=== PATIENT | male | born 1940 | race Caucasian/White ===

== ENCOUNTER 2019-07-26 10:39 | Inpatient (IN) ==
[2019-07-26] MEDS ORDERED: LACTATED RINGERS 1,000 ML IV ONE (10:49)
--- NOTE | 2019-07-26 11:08 | Emergency Department Note ---
GI Bleed HPI - General Chief complaint: Rectal Bleed Stated complaint: rectal bleed x2 this am Time Seen by Provider: 07/26/19 10:48 Source: patient Mode of arrival: ambulatory Limitations: no limitations - History of Present Illness HPI Narrative: 78-year-old gentleman presents to ED with history of bleeding from his rectum with a total of 2 bowel movements this morning up. He denies any syncope, but he did feel little bit lightheaded him. He denies nausea, vomiting or abdominal pain, denies abdominal bloating, but does state that he had loose stools about 2 or 3 bowel movements per day for the last week. He is on blood thinners for his atrial fibrillation, status post colonoscopy 5 years ago with removal of a few benign polyps. Previous abdominal surgeries include nephrectomy on the left side. It. He is also status post appendectomy and prostatectomy from a suprapubic procedure. MD complaint: gross hematochezia Severity: moderate Improves with: none Worsens with: none Context: anticoagulant use Associated symptoms: Reports: denies other symptoms, easy bruising, shortness of breath, weakness. Denies: syncope - Related Data Home Medications Medication Instructions Recorded Confirmed dorzolamide-timolol (PF) 2 %-0.5 % 1 drp OPHTHALMIC BID 05/20/15 07/23/19 eye drops in a dropperette latanoprost 0.005 % eye drops 1 drp OPHTHALMIC QDAY 05/20/15 07/23/19 [facility] MVI Tatum Aiden Gold 1 tab PO QDAY 11/24/16 07/23/19 apixaban 2.5 mg tablet 2.5 mg PO BID #180 tab 12/18/18 07/26/19 budesonide 3 mg 3 mg PO .QOD each 07/23/19 07/26/19 capsule,delayed,extended release Previous Rx's Medication Instructions Recorded furosemide 20 mg tablet 20 mg PO BID #60 tab 03/04/19 sodium bicarbonate 325 mg tablet 325 mg PO BID #60 tab 07/23/19 Allergies Allergy/AdvReac Type Severity Reaction Status Date / Time lidocaine AdvReac Mild Nausea Verified 07/26/19 10:45 Review of Systems All systems ED: reviewed and negative except as stated. Constitutional: Denies: fever, chills ENT ED: Denies: throat pain Cardiovascular: Denies: palpitations Respiratory: Denies: shortness of breath Gastrointestinal: Reports: diarrhea. Denies: abdominal pain, nausea, vomiting Genitourinary: Reports: frequency. Denies: dysuria Past Medical History - Past Medical History Medical history: Reports: atrial fibrillation, COPD Surgical history ED: Reports: appendectomy, prostatectomy Family history: Reports: non-contributory - Social History smoking status: Current every day smoker Alcohol use: Reports: Rarely Drug use: Reports: none Physical Exam Limitations: no limitations General appearance: alert, in no apparent distress, other (in general, very frail, weak-appearing 78-year-old male) Head: atraumatic, normocephalic Eye: Present: normal appearance, PERRL, EOMI. Absent: scleral icterus, conjunctival injection ENT: Present: mucous membranes dry, TM's normal bilaterally, normal external ear exam, dental caries Neck: Present: normal inspection, full ROM Chest: Present: normal inspection, symmetric chest wall rise Respiratory: Present: decreased breath sounds. Absent: wheezes Cardiovascular: Present: irregular rhythm, systolic murmur Abdominal: Present: soft, normal bowel sounds. Absent: distention, tenderness Rectal: Present: normal rectal tone, heme (+) stool, bloody stool. Absent: mass, prostate enlargement : Present: normal inspection, normal testicular lie. Absent: testicular tenderness, scrotal swelling Extremities: Present: normal inspection, full ROM, cyanosis. Absent: tenderness, normal capillary refill, pedal edema, joint swelling, calf tenderness Back: Absent: CVA tenderness (R), CVA tenderness (L), vertebral tenderness Neurological: Present: alert, oriented X3, CN II-XII intact. Absent: motor sensory deficit Psychiatric: Present: normal affect Skin: Present: warm, dry, normal color Course - Reevaluation(s) Reevaluation #1: Patient had one further bloody bowel movement out. While in the ED. His second hemoglobin came back 10.4, first one was 11.3, thus, he has dropped almost 1 entire unit, of course, some of this may be IV fluid hydration. His abdominal exam is benign. He is not vomiting, I believe this is a lower GI bleed and he is on blood thinners with his INR being elevated. I discussed observation with Dr. Villatoro who will be happy to consult and perform endoscopy if necessary. Vital Signs Temperature 97.0 F 07/26/19 10:40 Pulse Rate 84 07/26/19 10:40 Respiratory Rate 17 07/26/19 10:40 Blood Pressure 127/54 07/26/19 10:40 Pulse Oximetry (%) 95 07/26/19 10:40 Temperature 97.0 F 07/26/19 10:40 Pulse Rate 67 07/26/19 13:46 Respiratory Rate 17 07/26/19 16:01 Blood Pressure 162/84 07/26/19 16:01 Pulse Oximetry (%) 84 L 07/26/19 13:46 GI Bleed - MDM Narrative Medical decision making narrative: Impression his lower GI bleed - Lab Data Lab results reviewed: Yes I reviewed the patient's lab results. Result diagrams: 07/26/19 14:58 07/26/19 11:15 Lab Results 07/26/19 07/26/19 07/26/19 Range/Units 11:15 11:15 11:15 WBC 5.2 (4.5-11.0) K/mcL RBC 3.38 L (4.50-5.90) M/mcL Hgb 11.3 L (13.5-16.5) g/dL Hct 34.3 L (41.0-55.0) % MCV 101.5 H (80.0-100.0) fL MCH 33.6 (26.0-34.0) pg MCHC 33.1 (31.0-36.0) g/dL RDW 14.8 H (11.5-14.5) % Plt Count 183 (140-440) K/mcL MPV 9.7 (7.4-10.4) fL Gran % 66.3 (38.0-78.0) % Lymph % (Auto) 22.8 (15.5-49.0) % [place] % (Auto) 8.8 (1.0-12.0) % Eos % (Auto) 1.5 (0.0-7.0) % Baso % (Auto) 0.6 (0.0-2.0) % Gran # 3.5 (1.8-8.0) K/mcL Lymph # (Auto) 1.2 L (1.5-4.8) K/mcL [place] # (Auto) 0.5 (0.1-0.9) K/mcL Eos # (Auto) 0.1 (0.0-0.7) K/mcL Baso # (Auto) 0 (0.0-0.3) K/mcL PT 14.6 H (11.9-14.5) sec INR 1.1 (0.9-1.1) Sodium 135 (133-145) mmol/L Potassium 4.2 (3.3-5.1) mmol/L Chloride 105 (96-108) mmol/L Carbon Dioxide 21 L (22-30) mmol/L Anion Gap 9.0 (8-16) BUN 28 H (8-23) mg/dl Creatinine 2.3 H (0.7-1.2) mg/dl GFR Calculation 26 Glucose 100 (70-105) mg/dL Calcium 10.1 (8.6-10.4) mg/dl Total Bilirubin 0.4 (0.0-1.0) mg/dL AST 16 (0-37) U/l ALT 13 (0-40) U/l Alkaline Phosphatase 80 (39-117) U/L Total Protein 6.7 (5.9-8.4) gm/dL Albumin 3.8 (3.2-5.2) gm/dL Globulin 2.9 (2.2-3.7) gm/dL Albumin/Globulin Ratio 1.3 (1.0-2.3) 12 Range/Units 14:58 WBC 5.4 (4.5-11.0) K/mcL RBC 3.16 L (4.50-5.90) M/mcL Hgb 10.4 L (13.5-16.5) g/dL Hct 31.9 L (41.0-55.0) % MCV 100.9 H (80.0-100.0) fL MCH 33.0 (26.0-34.0) pg MCHC 32.7 (31.0-36.0) g/dL RDW 14.8 H (11.5-14.5) % Plt Count 157 (140-440) K/mcL MPV 9.9 (7.4-10.4) fL Gran % 61.4 (38.0-78.0) % Lymph % (Auto) 25.7 (15.5-49.0) % [place] % (Auto) 9.9 (1.0-12.0) % Eos % (Auto) 1.8 (0.0-7.0) % Baso % (Auto) 1.2 (0.0-2.0) % Gran # 3.3 (1.8-8.0) K/mcL Lymph # (Auto) 1.4 L (1.5-4.8) K/mcL [place] # (Auto) 0.5 (0.1-0.9) K/mcL Eos # (Auto) 0.1 (0.0-0.7) K/mcL Baso # (Auto) 0.1 (0.0-0.3) K/mcL PT (11.9-14.5) sec INR (0.9-1.1) Sodium (133-145) mmol/L Potassium (3.3-5.1) mmol/L Chloride (96-108) mmol/L Carbon Dioxide (22-30) mmol/L Anion Gap (8-16) BUN (8-23) mg/dl Creatinine (0.7-1.2) mg/dl GFR Calculation Glucose (70-105) mg/dL Calcium (8.6-10.4) mg/dl Total Bilirubin (0.0-1.0) mg/dL AST (0-37) U/l ALT (0-40) U/l Alkaline Phosphatase (39-117) U/L Total Protein (5.9-8.4) gm/dL Albumin (3.2-5.2) gm/dL Globulin (2.2-3.7) gm/dL Albumin/Globulin Ratio (1.0-2.3) Disposition Pt seen by [employer]ER/PA only: No Clinical Impression: Lower gastrointestinal hemorrhage, Long-term (current) use of anticoagulants Disposition: Xfer As Outpt/Obs ([facility]) Condition: Fair Referrals: Luiz Centeno PA-C [Primary Care Provider] -
[2019-07-26] MEDS ORDERED: 0.9 % SODIUM CHLORIDE 250 ML IV SCH ×2 (11:15→18:01)
[2019-07-26 11:51] LABS: Basophils # (Auto) 0 K/mcL (0.0-0.3); Basophils % (Auto) 0.6 % (0.0-2.0); Eosinophils # (Auto) 0.1 K/mcL (0.0-0.7); Eosinophils % (Auto) 1.5 % (0.0-7.0); Granulocytes % (Auto) 66.3 % (38.0-78.0); Hematocrit 34.3 % (41.0-55.0); Hemoglobin 11.3 g/dL (13.5-16.5); Lymphocytes # (Auto) 1.2 K/mcL (1.5-4.8); Lymphocytes % (Auto) 22.8 % (15.5-49.0); Mean Cell Volume 101.5 fL (80.0-100.0); Mean Corpuscular HGB Conc 33.1 g/dL (31.0-36.0); Mean Platelet Volume 9.7 fL (7.4-10.4); Monocytes # (Auto) 0.5 K/mcL (0.1-0.9); Monocytes % (Auto) 8.8 % (1.0-12.0); Platelet Count 183 K/mcL (140-440); RBC 3.38 M/mcL (4.50-5.90); Red Cell Distribution Width 14.8 % (11.5-14.5); WBC 5.2 K/mcL (4.5-11.0)
[2019-07-26 12:01] LABS: INR 1.1 (0.9-1.1); Prothrombin Time 14.6 sec (11.9-14.5)
[2019-07-26 12:06] LABS: ALT/SGPT 13 U/l (0-40); AST/SGOT 16 U/l (0-37); Albumin 3.8 gm/dL (3.2-5.2); Albumin/Globulin Ratio 1.3 (1.0-2.3); Alkaline Phosphatase 80 U/L (39-117); Bilirubin,Total 0.4 mg/dL (0.0-1.0); Blood Urea Nitrogen 28 mg/dl (8-23); Calcium 10.1 mg/dl (8.6-10.4); Carbon Dioxide 21 mmol/L (22-30); Chloride 105 mmol/L (96-108); Globulin 2.9 gm/dL (2.2-3.7); Glomerular Filtration Rate 26; Glucose 100 mg/dL (70-105)
[2019-07-26 15:54] LABS: Basophils # (Auto) 0.1 K/mcL (0.0-0.3); Basophils % (Auto) 1.2 % (0.0-2.0); Eosinophils # (Auto) 0.1 K/mcL (0.0-0.7); Eosinophils % (Auto) 1.8 % (0.0-7.0); Granulocytes % (Auto) 61.4 % (38.0-78.0); Hematocrit 31.9 % (41.0-55.0); Hemoglobin 10.4 g/dL (13.5-16.5); Lymphocytes # (Auto) 1.4 K/mcL (1.5-4.8); Lymphocytes % (Auto) 25.7 % (15.5-49.0); Mean Cell Volume 100.9 fL (80.0-100.0); Mean Corpuscular HGB Conc 32.7 g/dL (31.0-36.0); Mean Platelet Volume 9.9 fL (7.4-10.4); Monocytes # (Auto) 0.5 K/mcL (0.1-0.9); Monocytes % (Auto) 9.9 % (1.0-12.0); Platelet Count 157 K/mcL (140-440); RBC 3.16 M/mcL (4.50-5.90); Red Cell Distribution Width 14.8 % (11.5-14.5); WBC 5.4 K/mcL (4.5-11.0)
[2019-07-26] MEDS ORDERED: MAGNESIUM SULFATE 2 GM/50 ML BAG IV PRN (18:01)
[2019-07-26] MEDS ORDERED: ACETAMINOPHEN 325 MG TABLET PO PRN (18:01)
[2019-07-26] MEDS ORDERED: IPRATROPIUM/ALBUTEROL 3 ML AMPUL.NEB NEB PRN (18:01)
[2019-07-26] MEDS ORDERED: ACETAMINOPHEN 650 MG/65 ML BOTTLE IV PRN (18:01)
[2019-07-26] MEDS ORDERED: POLYETHYLENE GLYCOL 3350 17 GM PACKET PO PRN (18:01)
[2019-07-26] MEDS ORDERED: ONDANSETRON 4 MG ODT TABLET SL PRN (18:01)
[2019-07-26] MEDS ORDERED: POTASSIUM CHLORIDE 20 MEQ PACKET PO PRN (18:01)
[2019-07-26] MEDS ORDERED: BISACODYL 10 MG SUPP.RECT PR PRN (18:01)
[2019-07-26] MEDS ORDERED: ONDANSETRON 4 MG/2 ML VIAL IV PRN (18:01)
--- NOTE | 2019-07-26 18:47 | Internal Med History&Physical ---
Medical - H&P: [facility] Patient information: Note initiated : 07/26/19 at 6:44 pm Service Date, if different from initiated Date: [] Patient: Valerio Ohara 78 y/o M admitted on 07/26/19 for rectal bleed x2 this am. Chief Complaint: [] Chief complaint: Bloody stool History of present illness: Mr. Ohara is a 78 year old M with a history of atrial fibrillation on anticoagulation presents with bloody bowel that started this morning. Patient on his baseline state of health until he noticed blood smeared stool in the morning he subsequently had 2 more bloody bowels which were generally in consi stency without pain. He denied noticing change in stool caliber or weight loss. He then presents to the ER with initial work-up revealed hemoglobin of 10.4. Surgery was consulted and requested hospitalist service to admit patient for evaluation and monitoring. Patient endorses to a similar episode of GI bleed 6 years ago wherein he underwent colonoscopy and bleeder cauterization. Ever since he has not had hospitalization and has been following up with cardiology Dr. Weston for atrial fibrillation and nephrology for chronic kidney disease. At the time of evaluation patient is alert and oriented. He denies lightheadedness dizziness, chest palpitation, chest pain, abdominal cramping or vision changes. He further denies recent NSAID use, alcoholism. He is to his Clarice and is fairly functional at baseline. 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) Hypertensive renal disease (Chronic) Vitamin D deficiency (Chronic) 08/21/12 Tobacco use (Chronic) Venous thrombosis and embolism (Resolved) Renal sclerosis (Chronic) Renal insufficiency (Chronic) 08/07/12 Rectal bleeding (Resolved) Prostate cancer (Resolved) Obstructive uropathy (Resolved) Metabolic acidosis (Suspected) Lymphocytic colitis (Chronic) advised to try reducing budesonide to every other day as suggested by GI Long-term (current) use of anticoagulants (Chronic) Kidney stones (Chronic) Hypertensive heart disease, benign, with chronic kidney disease stage 1-4 (Chronic) Hypertension, essential (Chronic) Secondary hyperparathyroidism of renal origin (Chronic) Hyperlipidemia (Chronic) 08/21/2012 Internal hemorrhoids (Resolved) Glaucoma (Chronic) Fatigue (Chronic) 12/06/12 Deep vein thrombosis (Resolved) Colonic polyp (Resolved) Chronic kidney disease, stage IV (severe) (Chronic) Atrial fibrillation (Chronic) Anemia in CKD (chronic kidney disease) (Chronic) Hb above threshold for SOFIA Will monitor Acidosis (Resolved) Abdominal aortic aneurysm (Chronic) Acute rhinosinusitis (Resolved) Surgical History Hx of tonsillectomy (Chronic) History of prostate surgery (Chronic) 1999 Hx of prostate biopsy (Chronic) History of nephrectomy (Chronic) Left Hx of lithotripsy (Chronic) Hx of colonoscopy (Chronic) 08/27/13-Angioectasia, colonic polyps, diverticulitis, internal hemorrhoids. Hyperplastic polyp. FU colonoscopy recommended in 2017. 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 eating out: rarely or never physical activity: walking frequency: 3-4 times per week duration: 30-45 minutes/day smoking status: Current every day smoker tobacco type: cigarettes per day: 2 alcohol intake frequency: 2+ drinks per day substance use type: does not use gene/baptism: Voodoo additional history: 3 light beers a night Medical - H&P: Meds Home Medications Medication Instructions Recorded Confirmed Type dorzolamide-timolol (PF) 2 %-0.5 % 1 drp OPHTHALMIC BID 05/20/15 07/26/19 History eye drops in a dropperette latanoprost 0.005 % eye drops 1 drp OPHTHALMIC QDAY 05/20/15 07/26/19 History [facility] MVI Ulttra Aiden Gold 1 tab PO QDAY 11/24/16 07/26/19 History apixaban 2.5 mg tablet 2.5 mg PO BID #180 tab 12/18/18 07/26/19 History furosemide 20 mg tablet 20 mg PO BID #60 tab 03/04/19 07/26/19 Rx budesonide 3 mg 3 mg PO .QOD each 07/23/19 07/26/19 History capsule,delayed,extended release sodium bicarbonate 325 mg tablet 325 mg PO BID #60 tab 07/23/19 07/26/19 Rx Allergies Allergy/AdvReac Type Severity Reaction Status Date / Time lidocaine AdvReac Mild Nausea Verified 07/26/19 10:45 Medical - H&P: Exam - Constitutional Vitals: Temp Pulse Resp BP Pulse Ox 97.0 F 67 20 148/74 84 L 07/26/19 10:40 07/26/19 13:46 07/26/19 17:17 07/26/19 17:17 07/26/19 13:46 General appearance: no acute distress Exam: Head normocephalic Oral cavity dry No ear nose discharge Neck lymphadenopathy Eye movement symmetrical No pallor S1-S2 irregular rhythm Diminished breath sounds bases Abdomen soft nontender Lower extremity no cyanosis clubbing no joint swelling erythema Skin no suspicious lesion Psych alert cooperative Neuro nonfocal Medical - H&P: Reslt - Labs CBC & Chem 7: 07/26/19 14:58 07/26/19 11:15 Labs: Short CBC 07/26/19 07/26/19 Range/Units 11:15 14:58 WBC 5.2 5.4 (4.5-11.0) K/mcL Hgb 11.3 L 10.4 L (13.5-16.5) g/dL Hct 34.3 L 31.9 L (41.0-55.0) % Plt Count 183 157 (140-440) K/mcL BMP 07/26/19 11:15 Sodium 135 Potassium 4.2 Chloride 105 Carbon Dioxide 21 L BUN 28 H Creatinine 2.3 H Glucose 100 Calcium 10.1 Liver Function 07/26/19 Range/Units 11:15 Total Bilirubin 0.4 (0.0-1.0) mg/dL AST 16 (0-37) U/l ALT 13 (0-40) U/l Alkaline Phosphatase 80 (39-117) U/L Albumin 3.8 (3.2-5.2) gm/dL Medical - H&P: A/P (1) Lower gastrointestinal hemorrhage Current visit: Yes Status: Acute * Lower GI bleed-on anticoagulation. Hold Eliquis. Surgery consult for endoscopy. * Acute blood loss anemia-6 hourly hemoglobin check/PRN blood transfusion. Hold Eliquis. * History atrial fibrillation rate controlled. * Anticoagulation for CVA prophylaxis on Eliquis, continue holding until GI bleed resolves * History of chronic kidney disease stage IIIb creatinine at baseline, follows outpatient nephrology * History of COPD-continue budesonide * History glaucoma continue dorzolamide/timolol/latanoprost * Full code * Prophylaxis -anticoagulation on hold in light of GI bleed, continue SCDs Plan * Observation admit * Hold anticoagulation * Surgery consult * 6 hourly hemoglobin check/PRBC transfusion if hemoglobin less than 7.5 * Clear liquid diet
[2019-07-26] MEDS: 0.9 % SODIUM CHLORIDE 1,000 ML IV SCH (19:43)
[2019-07-26 20:02] LABS: Hematocrit 31.8 % (41.0-55.0); Hemoglobin 10.6 g/dL (13.5-16.5)
[2019-07-26] MEDS: DOCUSATE SODIUM 100 MG CAPSULE PO SCH (20:44)
[2019-07-26] MEDS ORDERED: MELATONIN 3 MG TABLET PO PRN (21:00)
[2019-07-26] MEDS ORDERED: SENNOSIDES/DOCUSATE SODIUM 1 TAB TABLET PO SCH (21:00)
[2019-07-26] MEDS ORDERED: BUDESONIDE 0.5 MG/2 ML AMPUL.NEB NEB SCH (21:00)
[2019-07-27] MEDS: 0.9 % SODIUM CHLORIDE 10 ML SYRINGE IV SCH ×4 (01:41→22:22)
[2019-07-27 04:57] LABS: Hematocrit 28.5 % (41.0-55.0); Hemoglobin 9.3 g/dL (13.5-16.5); Mean Cell Volume 101.5 fL (80.0-100.0); Mean Corpuscular HGB Conc 32.7 g/dL (31.0-36.0); Mean Platelet Volume 9.4 fL (7.4-10.4); Platelet Count 149 K/mcL (140-440); RBC 2.81 M/mcL (4.50-5.90); Red Cell Distribution Width 14.7 % (11.5-14.5); WBC 5.4 K/mcL (4.5-11.0)
[2019-07-27 05:37] LABS: Eosinophils % (Manual) 1 % (0-7); Lymphocytes % 16 % (15-49); Macrocytosis 1+ (NONE SEEN); Monocytes % (Manual) 13 % (1-12); Platelet Estimate NORMAL (NORMAL); RBC Morphology ABNORMAL (NORMAL); Segmented Neutrophils % 70 % (38-78)
[2019-07-27 06:04] LABS: ALT/SGPT 10 U/l (0-40); AST/SGOT 11 U/l (0-37); Albumin 3.2 gm/dL (3.2-5.2); Albumin/Globulin Ratio 1.3 (1.0-2.3); Alkaline Phosphatase 60 U/L (39-117); Bilirubin,Direct < 0.2 mg/dL (0.0-0.3); Bilirubin,Total 0.3 mg/dL (0.0-1.0); Blood Urea Nitrogen 28 mg/dl (8-23); Calcium 9.6 mg/dl (8.6-10.4); Carbon Dioxide 16 mmol/L (22-30); Chloride 112 mmol/L (96-108); Globulin 2.4 gm/dL (2.2-3.7); Glomerular Filtration Rate 31; Glucose 93 mg/dL (70-105); Lactate Dehydrogenase 147 U/L (94-250); Phosphorous 3.7 mg/dL (2.7-4.5); Triglycerides 71 mg/dl (<150); Uric Acid 7.7 mg/dL (2.5-8.0)
[2019-07-27] MEDS ORDERED: BUDESONIDE 3 MG CAP.XL.24H PO SCH ×2 (09:00)
--- NOTE | 2019-07-27 09:39 | Internal Med Progress Note ---
Medical - PN: Subj Patient information: Note initiated : 07/27/19 at 9:37 am Service Date, if different from initiated Date: [] Patient: Valerio Ohara 78 y/o M admitted on 07/26/19 for rectal bleed x2 this am. Chief Complaint: [] Interval history: Mr. Ohara is a 78 year old M with a history of atrial fibrillation on anticoagulation presents with bloody bowel that started this morning. Patient on his baseline state of health until he noticed blood smeared stool in the morning he subsequently had 2 more bloody bowels which were generally in consistency without pain. He denied noticing change in stool caliber or weight loss. He then presents to the ER with initial work-up revealed hemoglobin of 10.4. Surgery was consulted and requested hospitalist service to admit patient for evaluation and monitoring. Patient endorses to a similar episode of GI bleed 6 years ago wherein he underwent colonoscopy and bleeder cauterization. Ever since he has not had hospitalization and has been following up with cardiology Dr. Weston for atrial fibrillation and nephrology for chronic kidney disease. At the time of evaluation patient is alert and oriented. He denies lightheadedness dizziness, chest palpitation, chest pain, abdominal cramping or vision changes. He further denies recent NSAID use, alcoholism. He is to his Clarice and is fairly functional at baseline. 07/27-patient doing well. Overnight 3 bloody bowel movements but lower volume. Hemoglobin 9.3. No abdominal pain fever chills. Off Eliquis. Await surgery recommendations. Continue oral clears. Creatinine 2. - Constitutional Vitals: Vital Signs Temp Pulse Resp BP Pulse Ox 98.8 F 59 L 20 126/83 99 07/27/19 07:45 07/27/19 06:00 07/27/19 07:45 07/27/19 08:01 07/27/19 07:45 Period Temp Pulse Resp BP Sys/Walker Pulse Ox Last 24 Hr 97.0 F-98.8 F 49-90 13-22 58-185/38-124 84-100 Intake and Output 07/26/19 07/27/19 07/27/19 21:59 05:59 13:59 Intake Total 500 Output Total 200 125 Balance 500 -200 -125 Weight 144 lb Intake & Output: Intake & Output 07/26/19 07/27/1919 21:59 05:59 13:59 Intake Total 500 Output Total 200 125 Balance 500 -200 -125 Weight 144 lb Intake: Oral 500 Output: Void Amount 200 125 Other: Urine Appearance Clear Clear Clear Urine Color Bright Yellow Bright Yellow Bright Yellow Urine Odor Normal Strong Normal Stool Size Small Small Stool Color Dark Red Blood Dark Red Blood Stool Consistency Loose Loose # Voids 1 1 General appearance: no acute distress Exam: Alert oriented Nonlabored breathing No anxiety Nondistended abdomen No pallor Medical - PN: Obj Da - Labs CBC & Chem 7: 07/27/19 04:12 07/27/19 04:12 Labs: Abnormal Lab Results 07/27/19 07/27/19 07/27/19 04:12 04:12 00:11 RBC 2.81 L Hgb 9.3 L 9.8 L Hct 28.5 L MCV 101.5 H RDW 14.7 H Lymph # (Auto) Monocytes % (Manual) 13 H Macrocytosis 1+ A PT Chloride 112 H Carbon Dioxide 16 L BUN 28 H Creatinine 2.0 H Total Protein 5.6 L 07/26/19 07/26/19 07/26/19 19:14 14:58 11:15 RBC 3.16 L Hgb 10.6 L 10.4 L Hct 31.8 L 31.9 L MCV 100.9 H RDW 14.8 H Lymph # (Auto) 1.4 L Monocytes % (Manual) Macrocytosis PT 14.6 H Chloride Carbon Dioxide BUN Creatinine Total Protein 07/26/19 07/26/19 11:15 11:15 RBC 3.38 L Hgb 11.3 L Hct 34.3 L MCV 101.5 H RDW 14.8 H Lymph # (Auto) 1.2 L Monocytes % (Manual) Macrocytosis PT Chloride Carbon Dioxide 21 L BUN 28 H Creatinine 2.3 H Total Protein Meds: Medications Acetaminophen (Tylenol) 650 mg PO Q4-6HP PRN; Protocol PRN Reason: Per Pain Protocol/Fever > 101 Albuterol/Ipratropium (Duoneb) 3 ml NEB Q4HP PRN PRN Reason: Shortness Of Breath Bisacodyl (Dulcolax) 10 mg ID Q2-3DAYS PRN PRN Reason: Constipation Budesonide (Entecort) 3 mg PO DAILY EVARISTO Docusate Sodium (Colace) 100 mg PO BID [facility] Last Admin: 07/26/19 20:44 Dose: Not Given Documented by: Sodium Chloride (Sodium Chloride 0.9%) 1,000 mls @ 50 mls/hr IV .Q20H [facility] Stop: 07/29/19 06:00 Last Admin: 07/26/19 19:43 Dose: 50 mls/hr Documented by: Acetaminophen (Ofirmev) 650 mg in 65 mls @ 130 mls/hr IV Q6HP PRN; Protocol PRN Reason: Per Pain Protocol/Fever > 101 Magnesium Sulfate (Magnesium Sulfate) 2 gm in 50 mls @ 50 mls/hr IV UD PRN PRN Reason: MG = or < 1.7 Melatonin (Melatonin 3mg Tablet) 3 mg PO HSP PRN PRN Reason: Insomnia Ondansetron HCl (Zofran Odt) 4 mg SL Q4-6HP PRN; Protocol PRN Reason: Nausea And Vomiting Ondansetron HCl (Zofran) 4 mg IV Q4-6HP PRN; Protocol PRN Reason: Nausea And Vomiting Polyethylene Glycol (Miralax) 17 gm PO DAILYP PRN PRN Reason: Constipation Potassium Chloride (Klor-Con) 40 meq PO DAILYP PRN PRN Reason: K+ < 3.5 Senna/Docusate Sodium (Senna Plus Tablet) 1 tab PO HS [facility] Last Admin: 07/26/19 20:44 Dose: Not Given Documented by: Sodium Chloride (Saline Flush) 10 ml IV Q8 [facility] Last Admin: 07/27/19 05:23 Dose: Not Given Documented by: Medical - PN: A/P - Time Spent With Patient Total time spent is greater than 50% in coordination of care (as documented) at patient's floor/unit and/or counseling patient: 25 - 35 minutes (1) Lower gastrointestinal hemorrhage Status: Acute Assessment and plan: * Lower GI bleed-on anticoagulation. Hold Eliquis. Surgery consult for endoscopy. * Acute blood loss anemia-continue 6 hourly hemoglobin check/blood transfusion as indicated. Hold Eliquis. * History atrial fibrillation rate controlled. * Anticoagulation for CVA prophylaxis on Eliquis, currently held * History of chronic kidney disease stage IIIb creatinine at baseline, follows outpatient nephrology. Creatinine 2 * History of COPD-continue budesonide * History glaucoma continue dorzolamide/timolol/latanoprost Plan * Continue holding anticoagulation * Await surgery recommendations * SCDs * Clears * Discharge planning Current Visit: Yes
[2019-07-27] MEDS: DOCUSATE SODIUM 100 MG CAPSULE PO SCH (10:28)
--- NOTE | 2019-07-27 13:43 | General Surgery Consult Note ---
History of Present Illness Patient information: Note initiated : 07/27/19 at 1:41 pm Service Date, if different from initiated Date: [] Patient: Valerio Ohara 78 y/o M admitted on 07/26/19 for rectal bleed x2 this am. Chief Complaint: [] Reason for consult: other (rectal bleeding) Requesting physician: Larry Ridley History of present illness: 78-year-old male admitted last evening with rectal bleeding. The patient had onset of asymptomatic rectal bleeding about midday yesterday the he had 2 bright red rectal stools before coming to the emergency room. He denies abdominal pain nausea or vomiting. He has not had any change in his weight. He is on chronic anticoagulant therapy. He had a similar episode 6 years ago and colonoscopy revealed rectal polyps and angiodysplasia. He also carries a diagnosis of lymphocytic colitis. The anticoagulant therapy has been discontinued and the bleeding has ceased. Patient is counseled for colonoscopy tomorrow. Review of Systems - Constitutional fatigue, malaise, weakness, weight loss - EENT Nose, mouth and throat: bleeding gums, dental pain, vertigo - Cardiovascular dyspnea on exertion, irregular heart rhythm, rapid heart rate, no chest pain with activity, no syncope - Respiratory dyspnea on exertion - Gastrointestinal bloating, change in bowel habits, cramping, hematochezia - Genitourinary nocturia - Musculoskeletal back pain - Hematologic/Lymphatic easy bleeding, easy bruising Past History Past medical history: hypertension Chronic atrial fibrillation Chronic kidney disease stage IV History of rectal bleeding Lymphocytic colitis 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 History of kidney stones History prostate cancer Past surgical history: Left nephrectomy Prostatectomy Appendectomy Past family history: Adopted and parents not known Past social history: Smokes up to 5 cigarettes per day Drink light beers on a daily basis Medications and Allergies Home Medications Medication Instructions Recorded Confirmed Type dorzolamide-timolol (PF) 2 %-0.5 % 1 drp OPHTHALMIC BID 05/20/15 07/26/19 History eye drops in a dropperette latanoprost 0.005 % eye drops 1 drp OPHTHALMIC QDAY 05/20/15 07/26/19 History [facility] MVI Ulttra Aiden Gold 1 tab PO QDAY 11/24/16 07/26/19 History apixaban 2.5 mg tablet 2.5 mg PO BID #180 tab 12/18/18 07/26/19 History furosemide 20 mg tablet 20 mg PO BID #60 tab 03/04/19 07/26/19 Rx budesonide 3 mg 3 mg PO .QOD each 07/23/19 07/26/19 History capsule,delayed,extended release sodium bicarbonate 325 mg tablet 325 mg PO BID #60 tab 07/23/19 07/26/19 Rx Allergies Allergy/AdvReac Type Severity Reaction Status Date / Time lidocaine AdvReac Mild Nausea Verified 07/26/19 10:45 Exam Temp Pulse Resp BP Pulse Ox 98.5 F 59 L 20 123/75 97 07/27/19 12:53 07/27/19 06:00 07/27/19 12:53 07/27/19 12:53 07/27/19 12:53 - General physical appearance well developed, well nourished, no distress, cachectic, chronically ill - Eyes PERRL, normal ocular movement - ENT normal pinna, normal nares, normal mucosa, no hearing loss, no congestion, poor group home (severe dentition with multiple cavitated and broken teeth and multiple cavities) - Head Head exam IM: Present: atraumatic, normocephalic - Neck no masses, no bruits, trachea midline, no lymphadenopathy, no venous distension - Cardiovascular Cardiovascular exam IM: Present: normal rate and rhythm, irregular rhythm, +S1, +S2. Absent: JVD - Respiratory normal expansion, normal respiratory effort, clear to auscultation - Abdomen Abdomen: Present: soft, non tender ( no tenderness to palpation; no mass), bowel sounds Hernia: Present: none - Genitourinary Present: normal penis with no external lesions - Integumentary Present: no rash, no growths, no abnormal pigmentation - Neurologic Present: normal coordination, normal sensation - Musculoskeletal Present: normal gait, normal posture - Psychiatric Present: oriented to time, oriented to person, oriented to place, speech is normal, memory intact Results - Labs 07/27/19 12:00 07/27/19 04:12 Abnormal lab results 07/26/19 07/26/19 07/27/19 Range/Units 14:58 19:14 00:11 RBC 3.16 L (4.50-5.90) M/mcL Hgb 10.4 L 10.6 L 9.8 L (13.5-16.5) g/dL Hct 31.9 L 31.8 L (41.0-55.0) % MCV 100.9 H (80.0-100.0) fL RDW 14.8 H (11.5-14.5) % Lymph # (Auto) 1.4 L (1.5-4.8) K/mcL Monocytes % (Manual) (1-12) % Macrocytosis (NONE SEEN) Chloride (96-108) mmol/L Carbon Dioxide (22-30) mmol/L BUN (8-23) mg/dl Creatinine (0.7-1.2) mg/dl Total Protein (5.9-8.4) gm/dL 07/27/19 07/27/19 07/27/19 Range/Units 04:12 04:12 08:02 RBC 2.81 L (4.50-5.90) M/mcL Hgb 9.3 L 9.6 L (13.5-16.5) g/dL Hct 28.5 L (41.0-55.0) % MCV 101.5 H (80.0-100.0) fL RDW 14.7 H (11.5-14.5) % Lymph # (Auto) (1.5-4.8) K/mcL Monocytes % (Manual) 13 H (1-12) % Macrocytosis 1+ A (NONE SEEN) Chloride 112 H (96-108) mmol/L Carbon Dioxide 16 L (22-30) mmol/L BUN 28 H (8-23) mg/dl Creatinine 2.0 H (0.7-1.2) mg/dl Total Protein 5.6 L (5.9-8.4) gm/dL 07/27/19 Range/Units 12:00 RBC (4.50-5.90) M/mcL Hgb 10.1 L (13.5-16.5) g/dL Hct (41.0-55.0) % MCV (80.0-100.0) fL RDW (11.5-14.5) % Lymph # (Auto) (1.5-4.8) K/mcL Monocytes % (Manual) (1-12) % Macrocytosis (NONE SEEN) Chloride (96-108) mmol/L Carbon Dioxide (22-30) mmol/L BUN (8-23) mg/dl Creatinine (0.7-1.2) mg/dl Total Protein (5.9-8.4) gm/dL Diabetes panel 07/27/19 Range/Units 04:12 Sodium 143 (133-145) mmol/L Potassium 3.5 (3.3-5.1) mmol/L Chloride 112 H (96-108) mmol/L Carbon Dioxide 16 L (22-30) mmol/L BUN 28 H (8-23) mg/dl Creatinine 2.0 H (0.7-1.2) mg/dl Glucose 93 (70-105) mg/dL Calcium 9.6 (8.6-10.4) mg/dl AST 11 (0-37) U/l ALT 10 (0-40) U/l Alkaline Phosphatase 60 (39-117) U/L Total Protein 5.6 L (5.9-8.4) gm/dL Albumin 3.2 (3.2-5.2) gm/dL Triglycerides 71 (<150) mg/dl Calcium panel 07/27/19 Range/Units 04:12 Calcium 9.6 (8.6-10.4) mg/dl Phosphorus 3.7 (2.7-4.5) mg/dL Albumin 3.2 (3.2-5.2) gm/dL Pituitary panel 07/27/19 Range/Units 04:12 Sodium 143 (133-145) mmol/L Potassium 3.5 (3.3-5.1) mmol/L Chloride 112 H (96-108) mmol/L Carbon Dioxide 16 L (22-30) mmol/L BUN 28 H (8-23) mg/dl Creatinine 2.0 H (0.7-1.2) mg/dl Glucose 93 (70-105) mg/dL Calcium 9.6 (8.6-10.4) mg/dl Adrenal panel 07/27/19 Range/Units 04:12 Sodium 143 (133-145) mmol/L Potassium 3.5 (3.3-5.1) mmol/L Chloride 112 H (96-108) mmol/L Carbon Dioxide 16 L (22-30) mmol/L BUN 28 H (8-23) mg/dl Creatinine 2.0 H (0.7-1.2) mg/dl Glucose 93 (70-105) mg/dL Calcium 9.6 (8.6-10.4) mg/dl Total Bilirubin 0.3 (0.0-1.0) mg/dL AST 11 (0-37) U/l ALT 10 (0-40) U/l Alkaline Phosphatase 60 (39-117) U/L Total Protein 5.6 L (5.9-8.4) gm/dL Albumin 3.2 (3.2-5.2) gm/dL All other labs normal. Assessment and Plan (1) Lower gastrointestinal hemorrhage Patient will have bowel prep today and tomorrow. A CT of the abdomen and pelvis with oral contrast only will be done today He will be scheduled for colonoscopy tomorrow He is to be transfused 2 units of packed red cells if his hemoglobin drops below 9 Status: Acute (2) Long-term (current) use of anticoagulants Anticoagulant to be withheld until source of bleeding has been verified Status: Chronic (3) Anemia in CKD (chronic kidney disease) Status: Chronic Comment: Hb above threshold for SOFIA Will monitor (4) Atrial fibrillation Status: Chronic Qualifiers: Atrial fibrillation type: chronic (5) Chronic kidney disease, stage IV (severe) Status: Chronic (6) Hypertension, essential Status: Chronic (7) Prostate cancer Status: Resolved
[2019-07-27] MEDS ORDERED: 0.9 % SODIUM CHLORIDE 250 ML IV SCH (13:45)
[2019-07-27] MEDS: MAGNESIUM CITRATE 300 ML ORAL.SOL PO SCH ×3 (15:46→18:10)
--- NOTE | 2019-07-27 16:05 | Cat Scan Report ---
CLINICAL INFORMATION: Rectal bleeding COMPARISON: None. TECHNIQUE: Axial images were obtained through the abdomen and pelvis. Sagittally and coronally reformatted images. Oral contrast material was given. Intravenous contrast material was not administered due to elevated creatinine (2.0). FINDINGS: Lung bases:No focal pulmonary parenchymal mass or infiltrate. No bronchiectasis or honeycombing. There is mild pleural calcification at the right hemidiaphragm. There is no pleural fluid. There is moderate cardiomegaly. There is severe calcified coronary artery disease. There is no pericardial fluid. Liver:Negative to the limits of noncontrast enhanced examination. Liver contour is smooth. There is no ascites. No detectable mass. Gallbladder, billary:No calcified gallstones. No intra or extrahepatic bile duct dilatation Spleen:No splenomegaly. There are some splenic calcifications consistent with granulomatous disease. There is calcification of the splenic artery Pancreas:Negative. No pancreatic mass. No peripancreatic abnormality Adrenal glands:Negative Kidneys, ureters, bladder:Single left kidney. Findings consistent with previous right nephrectomy. 2 small nonobstructing calculi in the left upper pole. Single small calculus in the lower pole. Lower pole stone measures approximately 2 mm. The upper pole stones measure 4 mm. No detectable mass. There is no hydronephrosis. No hydroureter. No ureteral stone. No bladder calculus. Gastrointestinal:Examination is suboptimal for rectal bleeding is intravenous contrast material was not administered. There is no detectable rectal mass. There is sigmoid diverticulosis. No evidence for diverticulitis. No detectable colonic malignancy. Negative examination for appendicitis. Small bowel is negative. There is an intraluminal lipoma within the distal descending colon. This measures approximately 2.2 cm. Vascular:Severe atherosclerotic disease. There is dense calcification of the abdominal aorta. The abdominal aorta measures 2.7 cm at the level of the diaphragm. There is a saccular aneurysm arising from the infrarenal abdominal aorta. This aneurysm measures 5.0 cm in mediolateral dimension, 3.8 cm in AP dimension, and 4.8 cm in craniocaudal dimension. The common iliac arteries are densely calcified. There is a right common iliac artery aneurysm which measures 3.3 cm in AP dimension. External iliac arteries and common femoral arteries are calcified. There is calcification at the origin of the celiac trunk and superior mesenteric artery. No evidence for stenosis. Renal arteries are densely calcified and there is bilateral renal artery stenosis. Lymphatic:No retroperitoneal, para-aortic adenopathy. No significant mesenteric adenopathy Mesentery, peritoneum:No free intraperitoneal fluid. No intra-abdominal abscess. There is no pneumoperitoneum. Reproductive:Prostate is enlarged and there are multiple brachytherapy seeds within the prostate gland Musculoskeletal:No lumbar compression fractures. Bilateral L5 spondylolysis. Grade 2 spondylolisthesis and severe degenerative disc disease. Sacrum and pelvis are negative. Hips are negative. IMPRESSION: 1. 2 cm mass in the descending colon consistent with intraluminal lipoma 2. Sigmoid diverticulosis. No evidence for diverticulitis 3. Saccular abdominal aortic aneurysm. This measures 5.0 cm in maximum mediolateral dimension. Right common iliac artery aneurysm measures 3.3 cm maximally 4. Severe atherosclerotic disease. Dense coronary artery calcification. Probable bilateral renal artery stenosis The exam was performed using radiation dose optimization techniques including, but not limited to, automated exposure control, adjustment of the mA and/or kV according to patient size and use of iterative reconstruction technique. Interpreted and Authenticated by: Richard Centeno 07/27/19
[2019-07-27 16:09] LABS: POC Blood Urea Nitrogen 23 mg/dl (8-23); POC CO2 18 mmol/L (22-30); POC Calcium, Ionized 1.38 mmol/L (1.16-1.32); POC Chloride 112 mmol/L (96-108); POC Glucose, Random 97 mg/dL (70-105); POC Potassium 3.9 mmol/L (3.3-5.1); POC Sodium 137 mmol/L (133-145)
[2019-07-27] MEDS: 0.9 % SODIUM CHLORIDE 1,000 ML IV SCH (16:52)
[2019-07-27 20:42] LABS: Hematocrit 31.6 % (41.0-55.0); Hemoglobin 10.6 g/dL (13.5-16.5)
[2019-07-27] MEDS: Dorzolamide/Timolol/Pf [Cosopt Pf Eye Drops] OU SCH (21:17)
[2019-07-27] MEDS: SODIUM BICARBONATE 650 MG TABLET PO SCH (21:17)
[2019-07-28 00:32] LABS: Hematocrit 32.9 % (41.0-55.0); Hemoglobin 10.9 g/dL (13.5-16.5)
[2019-07-28 04:57] LABS: Hematocrit 31.5 % (41.0-55.0); Hemoglobin 10.4 g/dL (13.5-16.5); Mean Platelet Volume 9.3 fL (7.4-10.4); Platelet Count 122 K/mcL (140-440); RBC 3.25 M/mcL (4.50-5.90); Red Cell Distribution Width 18.2 % (11.5-14.5); WBC 5.6 K/mcL (4.5-11.0)
[2019-07-28 05:20] LABS: ALT/SGPT 18 U/l (0-40); AST/SGOT 25 U/l (0-37); Albumin 3.3 gm/dL (3.2-5.2); Albumin/Globulin Ratio 1.4 (1.0-2.3); Alkaline Phosphatase 65 U/L (39-117); Bilirubin,Direct < 0.2 mg/dL (0.0-0.3); Bilirubin,Total 0.4 mg/dL (0.0-1.0); Blood Urea Nitrogen 21 mg/dl (8-23); Carbon Dioxide 18 mmol/L (22-30); Chloride 112 mmol/L (96-108); Globulin 2.4 gm/dL (2.2-3.7); Glomerular Filtration Rate 33; Glucose 87 mg/dL (70-105); Lactate Dehydrogenase 147 U/L (94-250); Phosphorous 3.3 mg/dL (2.7-4.5); Triglycerides 50 mg/dl (<150); Uric Acid 7.7 mg/dL (2.5-8.0)
[2019-07-28 05:52] LABS: Anisocytosis 1+ (NONE SEEN); Band Neutrophils % 3 % (0-10); Lymphocytes % 26 % (15-49); Monocytes % (Manual) 7 % (1-12); Platelet Estimate DECREASED (NORMAL); RBC Morphology ABNORM (NORMAL); Segmented Neutrophils % 64 % (38-78)
[2019-07-28] MEDS ORDERED: POTASSIUM CHLORIDE 40 MEQ in DEXTROSE 5% IN WATER 500 ML IV ONE ×2 (06:16→07:47)
[2019-07-28] MEDS: 0.9 % SODIUM CHLORIDE 10 ML SYRINGE IV SCH ×3 (06:18→21:10)
[2019-07-28] MEDS: Dorzolamide/Timolol/Pf [Cosopt Pf Eye Drops] OU SCH ×2 (07:08→21:08)
[2019-07-28] MEDS: SODIUM BICARBONATE 650 MG TABLET PO SCH ×2 (07:08→21:09)
[2019-07-28] MEDS: LATANOPROST OPHTH DROPS 2.5ML BOTTLE OU SCH ×2 (07:08→11:38)
[2019-07-28] MEDS ORDERED: MULTIVIT,THER IRON,CA,FA & MIN 1 TABLET PO SCH (09:00)
[2019-07-28] MEDS: 0.9 % SODIUM CHLORIDE 1,000 ML IV SCH ×3 (09:16→15:18)
[2019-07-28 09:53] LABS: Hematocrit 32.5 % (41.0-55.0); Hemoglobin 10.7 g/dL (13.5-16.5)
--- NOTE | 2019-07-28 10:34 | Internal Med Progress Note ---
Medical - PN: Subj Patient information: Note initiated : 07/28/19 at 10:31 am Service Date, if different from initiated Date: [] Patient: Valerio Ohara 78 y/o M admitted on 07/26/19 for rectal bleed x2 this am. Chief Complaint: [] Interval history: Mr. Ohara is a 78 year old M with a history of atrial fibrillation on anticoagulation presents with bloody bowel that started this morning. Patient on his baseline state of health until he noticed blood smeared stool in the morning he subsequently had 2 more bloody bowels which were generally in consistency without pain. He denied noticing change in stool caliber or weight loss. He then presents to the ER with initial work-up revealed hemoglobin of 10.4. Surgery was consulted and requested hospitalist service to admit patient for evaluation and monitoring. Patient endorses to a similar episode of GI bleed 6 years ago wherein he underwent colonoscopy and bleeder cauterization. Ever since he has not had hospitalization and has been following up with cardiology Dr. Weston for atrial fibrillation and nephrology for chronic kidney disease. At the time of evaluation patient is alert and oriented. He denies lightheadedness dizziness, chest palpitation, chest pain, abdominal cramping or vision changes. He further denies recent NSAID use, alcoholism. He is to his Clarice and is fairly functional at baseline. 07/27-patient doing well. Overnight 3 bloody bowel movements but lower volume. Hemoglobin 9.3. No abdominal pain fever chills. Off Eliquis. Await surgery recommendations. Continue oral clears. Creatinine 2. 07/28-patient doing well. Continues to experience bloody bowels but improved since midnight. Status post 2 units PRBC. Hemoglobin up to 10.9. Colonoscopy later today. Feels weak and fatigued. Denies abdominal pain but feels nauseous. Stable hemodynamics. - Constitutional Vitals: Vital Signs Temp Pulse Resp BP Pulse Ox 98.1 F 59 L 16 140/43 100 07/28/19 10:01 07/27/19 06:00 07/28/19 10:01 07/28/19 10:01 07/28/19 10:01 Period Temp Pulse Resp BP Sys/Walker Pulse Ox Last 24 Hr 97.6 F-98.8 F 16-20 67-167/32-98 76-100 Intake and Output 07/27/19 07/28/19 07/28/19 21:59 05:59 13:59 Intake Total 2415 0 Output Total 1225 800 Balance 1190 -800 0 Weight 146 lb 3.2 oz Intake & Output: Intake & Output 07/27/19 07/28/19 07/28/19 21:59 05:59 13:59 Intake Total 2415 0 Output Total 1225 800 Balance 1190 -800 0 Weight 146 lb 3.2 oz Intake: IV 1130 Sodium Chloride 0.9% 1,000 ml @ 1130 50 mls/hr IV .Q20H EVARISTO Rx#: [id number] Oral 0 Blood Product 1285 Output: Void Amount 375 300 Urine/Stool Mix 500 Stool 850 Other: Meal Breakfast Percent of Meal Consumed 0%, NPO Urine Appearance Clear Clear Urine Color Bright Yellow Bright Yellow Urine Odor Normal Normal Stool Size Small Moderate Stool Color Brown Brown Stool Consistency Liquid Watery Watery # Bowel Movements 1 # of times incontinent of 1 1 Bowels General appearance: no acute distress Exam: Alert oriented nonlabored breathing Nondistended abdomen No anxiety Medical - PN: Obj Da - Labs CBC & Chem 7: 07/28/19 08:09 07/28/19 03:56 Labs: Abnormal Lab Results 07/28/19 07/28/19 07/28/19 08:09 03:56 03:56 RBC 3.25 L Hgb 10.7 L 10.4 L Hct 32.5 L 31.5 L POC Hct MCV RDW 18.2 H Plt Count 122 L Lymph # (Auto) Monocytes % (Manual) Platelet Estimate Decreased A RBC Morphology Abnorm A Anisocytosis 1+ A Macrocytosis PT Potassium 3.1 L POC Chloride Chloride 112 H Carbon Dioxide 18 L POC Total CO2 BUN Creatinine 1.9 H POC Creatinine POC WB Ioniz Calcium Total Protein 5.7 L 07/28/19 07/27/19 07/27/19 00:00 20:07 16:04 RBC Hgb 10.9 L 10.6 L Hct 32.9 L 31.6 L POC Hct 28.0 L MCV RDW Plt Count Lymph # (Auto) Monocytes % (Manual) Platelet Estimate RBC Morphology Anisocytosis Macrocytosis PT Potassium POC Chloride 112 H Chloride Carbon Dioxide POC Total CO2 18 L BUN Creatinine POC Creatinine 2.0 H POC WB Ioniz Calcium 1.38 H Total Protein 07/27/19 07/27/19 07/27/19 16:04 12:00 08:02 RBC Hgb 9.9 L 10.1 L 9.6 L Hct POC Hct MCV RDW Plt Count Lymph # (Auto) Monocytes % (Manual) Platelet Estimate RBC Morphology Anisocytosis Macrocytosis PT Potassium POC Chloride Chloride Carbon Dioxide POC Total CO2 BUN Creatinine POC Creatinine POC WB Ioniz Calcium Total Protein 07/27/19 07/27/19 07/27/19 04:12 04:12 00:11 RBC 2.81 L Hgb 9.3 L 9.8 L Hct 28.5 L POC Hct MCV 101.5 H RDW 14.7 H Plt Count Lymph # (Auto) Monocytes % (Manual) 13 H Platelet Estimate RBC Morphology Anisocytosis Macrocytosis 1+ A PT Potassium POC Chloride Chloride 112 H Carbon Dioxide 16 L POC Total CO2 BUN 28 H Creatinine 2.0 H POC Creatinine POC WB Ioniz Calcium Total Protein 5.6 L 07/26/19 07/26/19 07/26/19 19:14 14:58 11:15 RBC 3.16 L Hgb 10.6 L 10.4 L Hct 31.8 L 31.9 L POC Hct MCV 100.9 H RDW 14.8 H Plt Count Lymph # (Auto) 1.4 L Monocytes % (Manual) Platelet Estimate RBC Morphology Anisocytosis Macrocytosis PT 14.6 H Potassium POC Chloride Chloride Carbon Dioxide POC Total CO2 BUN Creatinine POC Creatinine POC WB Ioniz Calcium Total Protein 07/26/19 07/26/19 11:15 11:15 RBC 3.38 L Hgb 11.3 L Hct 34.3 L POC Hct MCV 101.5 H RDW 14.8 H Plt Count Lymph # (Auto) 1.2 L Monocytes % (Manual) Platelet Estimate RBC Morphology Anisocytosis Macrocytosis PT Potassium POC Chloride Chloride Carbon Dioxide 21 L POC Total CO2 BUN 28 H Creatinine 2.3 H POC Creatinine POC WB Ioniz Calcium Total Protein Meds: Medications Acetaminophen (Tylenol) 650 mg PO Q4-6HP PRN; Protocol PRN Reason: Per Pain Protocol/Fever > 101 Albuterol/Ipratropium (Duoneb) 3 ml NEB Q4HP PRN PRN Reason: Shortness Of Breath Sodium Chloride (Sodium Chloride 0.9%) 1,000 mls @ 50 mls/hr IV .Q20H [facility] Stop: 07/29/19 06:00 Last Admin: 07/28/19 09:16 Dose: Not Given Documented by: Acetaminophen (Ofirmev) 650 mg in 65 mls @ 130 mls/hr IV Q6HP PRN; Protocol PRN Reason: Per Pain Protocol/Fever > 101 Magnesium Sulfate (Magnesium Sulfate) 2 gm in 50 mls @ 50 mls/hr IV UD PRN PRN Reason: MG = or < 1.7 Potassium Chloride 40 meq/ (Dextrose) 520 mls @ 130 mls/hr IV TODAY@1100 [facility] Stop: 07/28/19 14:59 Iron Carb/Multivit/Hospital Insurance Representative/Folic Acid (Multivitamin W/Minerals) 1 tab PO DAILY [facility] Last Admin: 07/28/19 07:07 Dose: Not Given Documented by: Latanoprost (Xalatan Ophth Drops) 1 gtt OU DAILY [facility] Melatonin (Melatonin 3mg Tablet) 3 mg PO HSP PRN PRN Reason: Insomnia Ondansetron HCl (Zofran Odt) 4 mg SL Q4-6HP PRN; Protocol PRN Reason: Nausea And Vomiting Ondansetron HCl (Zofran) 4 mg IV Q4-6HP PRN; Protocol PRN Reason: Nausea And Vomiting Last Admin: 07/27/19 13:55 Dose: 4 mg Documented by: Dorzolamide/Timolol/Pf [Cosopt Pf Eye Drops] 1 dose OU BID [facility] Last Admin: 07/28/19 07:08 Dose: Not Given Documented by: Potassium Chloride (Klor-Con) 40 meq PO DAILYP PRN PRN Reason: K+ < 3.5 Sodium Bicarbonate (Sodium Bicarbonate) 325 mg PO BID [facility] Last Admin: 07/28/19 07:08 Dose: Not Given Documented by: Sodium Chloride (Saline Flush) 10 ml IV Q8 [facility] Last Admin: 07/28/19 06:18 Dose: Not Given Documented by: Medical - PN: A/P - Time Spent With Patient Total time spent is greater than 50% in coordination of care (as documented) at patient's floor/unit and/or counseling patient: 25 - 35 minutes (1) Lower gastrointestinal hemorrhage Status: Acute Assessment and plan: * Lower GI bleed-likely diverticular. Colonoscopy today. Eliquis on hold surgery * Acute blood loss anemia-status post units blood transfusion. Continue 6 hourly hemoglobin check * History atrial fibrillation rate controlled. * Anticoagulation for CVA prophylaxis -Eliquis currently on hold in light of GI bleed * History of chronic kidney disease stage IIIb creatinine at baseline, follows outpatient nephrology. Creatinine 2 * History of COPD-continue budesonide * History glaucoma continue dorzolamide/timolol/latanoprost Plan * Colonoscopy today * PRBC transfusion as indicated * SCDs * Keep n.p.o. Current Visit: Yes
[2019-07-28] MEDS ORDERED: POTASSIUM CHLORIDE 40 MEQ in DEXTROSE 5% IN WATER 500 ML IV SCH (11:00)
[2019-07-28] MEDS ORDERED: LIDOCAINE HCL/PF 100 MG/5 ML SYRINGE IV ONE (13:14)
[2019-07-28] MEDS ORDERED: PROPOFOL 200 MG/20 ML VIAL IV ONE (13:14)
[2019-07-28] MEDS ORDERED: KETAMINE 100 MG/ML ML IV ONE (13:14)
[2019-07-28] MEDS ORDERED: GLYCOPYRROLATE 0.2 MG/ML VIAL IV ONE (13:14)
--- NOTE | 2019-07-28 14:00 | Brief Operative Note ---
Date of procedure: 07/28/19 Pre-op diagnosis: LOWER G.I. BLEEDING Post-op diagnosis: other (PANCOLONIC WIDEMOUTH DIVERTICULOSIS; POLYPS OF CECUM AND TRANSVERSE COLON; LIPOMA OF SIGMOID COLON) Procedure: COLONOSCOPY WITH POLYPECTOMY X2 Grafts/Implants: No Anesthesia: none (GENERAL) Findings: EXTENSIVE TOTAL COLONIC WIDE MOUTH DIVERTICULAE POLYP OF CECUM AT APPENDICEAL ORIFICE POLYP OF PROXIMAL TRANSVERSE COLON LARGE LIPOMA OF SIGMOID AT 30 CM Complications: none Surgeon: Damien Villatoro Specimens Removed/Pathology: other (COLON POLYP BIOPSIES) Condition: stable Disposition: ICU
[2019-07-28 14:15] LABS: Hematocrit 30.2 % (41.0-55.0); Hemoglobin 10.2 g/dL (13.5-16.5)
[2019-07-28] MEDS ORDERED: ACETAMINOPHEN 650 MG/65 ML BOTTLE IV PRN (14:24)
[2019-07-28] MEDS ORDERED: ONDANSETRON 4 MG ODT TABLET SL PRN (14:24)
[2019-07-28] MEDS ORDERED: IPRATROPIUM/ALBUTEROL 3 ML AMPUL.NEB NEB PRN (14:24)
[2019-07-28] MEDS ORDERED: POTASSIUM CHLORIDE 20 MEQ PACKET PO PRN (14:24)
[2019-07-28] MEDS ORDERED: MAGNESIUM SULFATE 2 GM/50 ML BAG IV PRN (14:24)
[2019-07-28] MEDS ORDERED: ACETAMINOPHEN 325 MG TABLET PO PRN (14:24)
[2019-07-28] MEDS ORDERED: ONDANSETRON 4 MG/2 ML VIAL IV PRN (14:24)
[2019-07-28] MEDS ORDERED: MELATONIN 3 MG TABLET PO PRN (21:00)
[2019-07-28] MEDS ORDERED: LATANOPROST OPHTH DROPS 2.5ML BOTTLE OU SCH ×2 (21:00)
[2019-07-29 05:33] LABS: Hematocrit 30.6 % (41.0-55.0); Hemoglobin 10.2 g/dL (13.5-16.5); Mean Cell Volume 97.6 fL (80.0-100.0); Mean Corpuscular HGB Conc 33.3 g/dL (31.0-36.0); Mean Platelet Volume 9.5 fL (7.4-10.4); Platelet Count 103 K/mcL (140-440); RBC 3.14 M/mcL (4.50-5.90); Red Cell Distribution Width 18.3 % (11.5-14.5); WBC 6.9 K/mcL (4.5-11.0)
[2019-07-29 05:48] LABS: ALT/SGPT 15 U/l (0-40); AST/SGOT 19 U/l (0-37); Albumin 3.1 gm/dL (3.2-5.2); Albumin/Globulin Ratio 1.4 (1.0-2.3); Alkaline Phosphatase 63 U/L (39-117); Bilirubin,Direct < 0.2 mg/dL (0.0-0.3); Bilirubin,Total 0.4 mg/dL (0.0-1.0); Blood Urea Nitrogen 18 mg/dl (8-23); Calcium 9.5 mg/dl (8.6-10.4); Carbon Dioxide 17 mmol/L (22-30); Chloride 113 mmol/L (96-108); Globulin 2.2 gm/dL (2.2-3.7); Glomerular Filtration Rate 31; Glucose 86 mg/dL (70-105); Lactate Dehydrogenase 159 U/L (94-250); Phosphorous 2.5 mg/dL (2.7-4.5); Triglycerides 39 mg/dl (<150); Uric Acid 7.3 mg/dL (2.5-8.0)
[2019-07-29] MEDS: 0.9 % SODIUM CHLORIDE 10 ML SYRINGE IV SCH ×2 (06:15→08:04)
[2019-07-29 08:28] LABS: Anisocytosis 1+ (NONE SEEN); Band Neutrophils % 3 % (0-10); Eosinophils % (Manual) 2 % (0-7); Lymphocytes % 21 % (15-49); Monocytes % (Manual) 4 % (1-12); Platelet Estimate DECREASED (NORMAL); RBC Morphology ABNORM (NORMAL); Segmented Neutrophils % 70 % (38-78)
[2019-07-29] MEDS: Dorzolamide/Timolol/Pf [Cosopt Pf Eye Drops] OU SCH (08:35)
[2019-07-29] MEDS: SODIUM BICARBONATE 650 MG TABLET PO SCH (08:39)
[2019-07-29] MEDS ORDERED: MULTIVIT,THER IRON,CA,FA & MIN 1 TABLET PO SCH (09:00)
--- NOTE | 2019-07-29 10:20 | Discharge Summary ---
Medical - DS: Prov Patient information: Note initiated : 07/29/19 at 10:17 am Service Date, if different from initiated Date: [] Patient: Valerio Ohara 78 y/o M admitted on 07/26/19 for rectal bleed x2 this am. Chief Complaint: [] Date of admission: 07/26/19 17:50 Discharge date: 07/29/19 Primary care physician: Luiz Centeno Consults: 07/26/19 Consult to Physician [CONS] Stat Comment: Consulting Provider: Larry Ridley Reason For Exam: Physician to Consult Consult to Physician [CONS] Stat Comment: Consulting Provider: Damien Villatoro Reason For Exam: Physician to Consult Medical - DS: Meds - Discharge Medications Active and Home Medications: Home Medications dorzolamide-timolol (PF) 2 %-0.5 % eye drops in a dropperette 1 drp OPHTHALMIC BID 05/20/15 [History Confirmed 07/26/19 Last Taken Unknown] latanoprost 0.005 % eye drops 1 drp OPHTHALMIC QDAY 05/20/15 [History Confirmed 07/26/19 Last Taken 08/27/17 05:00] [facility] Ulttra Aiden Gold 1 tab PO QDAY 11/24/16 [History Confirmed 07/26/19 Last Taken Unknown] apixaban 2.5 mg tablet 2.5 mg PO BID #180 tab 12/18/18 [History Confirmed 07/26/19 Last Taken Unknown] furosemide 20 mg tablet 20 mg PO BID #60 tab 03/04/19 [Rx Confirmed 07/26/19 Last Taken Unknown] budesonide 3 mg capsule,delayed,extended release 3 mg PO .QOD each 07/23/19 [History Confirmed 07/26/19 Last Taken Unknown] sodium bicarbonate 325 mg tablet 325 mg PO BID #60 tab 07/23/19 [Rx Confirmed 07/26/19 Last Taken Unknown] Medical - DS: Hosp Hospital Course: Discharge diagnosis * Lower GI bleed- diverticular clinically resolved. Status post colonoscopy. no further GI bleed. Eliquis on hold for additional 48 to 72 hours. Discharging home * Acute blood loss anemia-status post units blood transfusion. Hemoglobin stable at 10.2 * History atrial fibrillation rate controlled. * Anticoagulation for CVA prophylaxis -Eliquis currently on hold for additional 48 to 72 hours in light of GI bleed * History of chronic kidney disease stage IIIb creatinine at baseline, follows outpatient nephrology. * History of COPD-continue budesonide * History glaucoma continue dorzolamide/timolol/latanoprost Brief hospital course Mr. Ohara is a 78 year old M with a history of atrial fibrillation on anticoagulation presents with bloody bowel that started this morning. Patient on his baseline state of health until he noticed blood smeared stool in the morning he subsequently had 2 more bloody bowels which were generally in consistency without pain. He denied noticing change in stool caliber or weight loss. He then presents to the ER with initial work-up revealed hemoglobin of 10.4. Surgery was consulted and requested hospitalist service to admit patient for evaluation and monitoring. Patient endorses to a similar episode of GI bleed 6 years ago wherein he underwent colonoscopy and bleeder cauterization. Ever since he has not had hospitalization and has been following up with cardiology Dr. Weston for atrial fibrillation and nephrology for chronic kidney disease. At the time of evaluation patient is alert and oriented. He denies lightheadedness dizziness, chest palpitation, chest pain, abdominal cramping or vision changes. He further denies recent NSAID use, alcoholism. He is to his Clarice and is fairly functional at baseline. 07/27-patient doing well. Overnight 3 bloody bowel movements but lower volume. Hemoglobin 9.3. No abdominal pain fever chills. Off Eliquis. Await surgery recommendations. Continue oral clears. Creatinine 2. 07/28-patient doing well. Continues to experience bloody bowels but improved since midnight. Status post 2 units PRBC. Hemoglobin up to 10.9. Colonoscopy later today. Feels weak and fatigued. Denies abdominal pain but feels nauseous. Stable hemodynamics. 07/29-patient doing well. No overnight events. No concerns per staff. No further GI bleed. Colonoscopy multiple diverticuli but no active bleed. Tolerating diet. Discharging advised to hold Eliquis for additional 2 to 3 days. Advised return to ER if bloody bowels or have lightheadedness or dizziness noted. Discharge instructions below. Discharge diagnosis: . - Time Spent with Patient Total time spent providing and/or coordinating discharge services: Greater than 30 minutes Medical - DS: Exam - Constitutional Vitals: Vital Signs Temp Pulse Resp BP Pulse Ox 07/29/19 10:03 116/45 98 07/29/19 09:01 136/50 98 07/29/19 08:08 99 F 69 20 156/58 98 07/29/19 07:01 54 L 110/53 96 07/29/19 06:12 87 95/63 97 07/29/19 06:01 61 14 87/58 96 07/29/19 05:01 73 16 90/50 96 07/29/19 04:01 97.9 F 67 16 106/45 93 07/29/19 03:01 63 16 87/57 96 07/29/19 02:01 43 L 14 88/53 97 07/29/19 01:01 50 L 16 99/59 99 07/29/19 00:08 98.8 F 59 L 16 89/69 96 07/28/19 23:01 46 L 16 110/73 96 07/28/19 22:01 98.9 F 53 L 16 135/65 95 07/28/19 21:31 62 16 110/56 98 07/28/19 19:09 54 L 134/61 98 07/28/19 17:32 108 H 173/66 95 07/28/19 17:01 66 94/63 100 07/28/19 16:31 50 L 63/54 100 07/28/19 16:01 68 93/56 99 07/28/19 15:31 61 82/71 100 07/28/19 15:09 53 L 93 07/28/19 15:01 60 63/55 100 07/28/19 14:48 75 67/41 98 07/28/19 14:31 69 121/79 100 07/28/19 14:29 80 80/44 95 07/28/19 12:25 17 99 07/28/19 12:04 98.5 F 110/47 98 07/28/19 11:01 16 116/52 97 Intake and Output 07/28/19 07/29/19 07/29/19 21:59 05:59 13:59 Intake Total 9559 849 1991 Output Total 700 800 Balance 1186 120 518 Intake: IV 446 838 Sodium Chloride 0.9% 1,000 ml @ 22 838 50 mls/hr IV .Q20H [facility] Rx#: [id number] Potassium Chloride 40 Meq In 424 Dextrose 5% in Water 500 ml @ 130 mls/hr IV TODAY@1100 [facility] Rx #:[id number] Oral 1440 120 480 Output: Void Amount 700 800 Other: Meal Dinner Breakfast Percent of Meal Consumed 100% 90 Feeding Ability Independent Urine Appearance Clear Clear Urine Color Straw Pale Weight 147 lb 14.4 oz Medical - DS: Data Labs on day of discharge: Labs from last 24 hours 07/29/19 07/29/19 07/28/19 03:40 03:40 12:01 WBC 6.9 RBC 3.14 L Hgb 10.2 L 10.2 L Hct 30.6 L 30.2 L MCV 97.6 MCH 32.5 MCHC 33.3 RDW 18.3 H Plt Count 103 L MPV 9.5 Total Counted 100 Seg Neutrophils % 70 Band Neutrophils % 3 Lymphocytes % 21 Monocytes % (Manual) 4 Eosinophils % (Manual) 2 Platelet Estimate Decreased A RBC Morphology Abnorm A Anisocytosis 1+ A Sodium 135 Potassium 4.4 Chloride 113 H Carbon Dioxide 17 L Anion Gap 5.0 L BUN 18 Creatinine 2.0 H GFR Calculation 31 Glucose 86 Uric Acid 7.3 Calcium 9.5 Phosphorus 2.5 L Magnesium 2.1 Total Bilirubin 0.4 Direct Bilirubin < 0.2 GGT 17 AST 19 ALT 15 Alkaline Phosphatase 63 Lactate Dehydrogenase 159 Total Protein 5.3 L Albumin 3.1 L Globulin 2.2 Albumin/Globulin Ratio 1.4 Triglycerides 39 Medical - DS: A/P - Patient/Caregiver Discharge Instructions Activity: increase activity as tolerated Diet: Regular Diet Additional Instructions: Hold Eliquis for 48 to 72 hours Follow-up surgery and 2 weeks follow-up primary care physician in 1 week Return to ER if bloody stool/lightheadedness dizziness noted - Problem Maintenance (1) Lower gastrointestinal hemorrhage Status: Acute - Follow up Plan Follow up with: Luiz Centeno PA-C [Primary Care Provider] - 08/06/19 9:00 am Adam Alves MD [Physician] - 09/04/19 1:00 pm (This appointment is with Dr. Potter as Dr. Alves is out of the office.) Damien Villatoro MD [Physician] - 08/05/19 9:30 am Disposition: Home, Self-Care Care Plan Goals: This discharge packet is provided to you to help keep you informed about your care. We want to ensure you get everything you need when you go home. You will also be receiving a call from us in a few days to follow up with you and see how you are doing since your discharge. This gives us a chance to listen to any concerns you maybe experiencing since you were discharged or any additional needs you may have, as well as providing us feedback on your care experience. We strive to always provide excellent care and thank you for your feedback and for choosing [facility]. Prognosis: Fair Rehab Potential: Good I certify that the patient requires SNF services: No Overall status at discharge: patient is progressing back to baseline
[2019-07-29] MEDS ORDERED: POTASSIUM CHLORIDE 40 MEQ in DEXTROSE 5% IN WATER 500 ML IV SCH (11:00)
--- NOTE | 2019-07-29 11:59 | Surgical Pathology Report ---
HISTOLOGY SPECIMEN MICROSCOPIC DIAGNOSIS SPECIMEN A - COLON, CECUM, POLYPECTOMY: -- TUBULAR ADENOMA. SPECIMEN B - COLON, TRANSVERSE, POLYPECTOMY: -- TUBULAR ADENOMA. SPECIMEN C - COLON, RECTUM, POLYPECTOMY: -- HYPERPLASTIC POLYP. (RLF:mary) CLINICAL HISTORY Lower GI bleeding. PROCEDURAL IMPRESSION Polyps; lipoma. GROSS DESCRIPTION Specimen A: Received in formalin labeled cecal polyp, are four pink-douglas tissue fragments from 0.2 to 0.4 cm. Entirely submitted - one cassette. Specimen B: Received in formalin labeled transverse colon polyp, are four pink-douglas tissue fragments from 0.3 to 0.4 cm. Entirely submitted - one cassette. Specimen C: Received in formalin labeled rectal polyp, are two pink-douglas tissue fragments 0.4 and 0.5 cm. Entirely submitted - one cassette. (BARBIE:mary) Electronically Signed by: Yamileth Cueto M.D.
--- NOTE | 2019-08-05 08:39 | Operative Note ---
DATE OF OPERATION: 07/28/2019 PREOPERATIVE DIAGNOSIS: Lower GI bleeding. POSTOPERATIVE DIAGNOSES: Pancolonic wide-mouthed diverticulosis, polyps of the cecum and transverse colon, lipoma of the sigmoid colon. PROCEDURE: Colonoscopy with polypectomy x2. SURGEON: Damien Villatoro MD DESCRIPTION OF PROCEDURE: Under general anesthesia, the patient was turned to the left lateral decubitus position. Time-out procedure was carried out as per protocol. Digital examination of the anus was unremarkable. Scope was introduced. After extending the scope past the rectum, there were extensive wide-mouthed diverticula that extended to the cecum. The cecum was identified by the opening of the appendix, ileocecal valve, and confluence of the taenia. There was a polyp of the cecum that was removed by cold biopsy. It was positioned next to the opening of the appendix. At all of it was retrieved. The scope was maximally insufflated and gradually withdrawn. In the proximal transverse colon, there was another flat polyp that was removed by multiple cold biopsies. There was no significant bleeding. The rest of the transverse colon was unremarkable except for diverticulosis. The descending and sigmoid colon were unremarkable except for diverticulosis. At 30 cm in the sigmoid, there was a large lipoma with normal appearing overlying mucosa with a very strong yellow submucosal hue. It was not biopsied. Retroflexed view in the rectum was carried out and no abnormality was found. The air was suctioned from the distal colon and the scope was removed. The patient tolerated the procedure well. He was awakened and transferred to the floor in satisfactory condition. LCS:jr Job ID: [id number] Doc ID: [id number] Damien Villatoro M.D.
== END 2019-07-29 11:30 | disposition home or self-care (01) | DRG 378 ==
LOC: ICU 10:39 → ED 10:39 → OBSVTOIN 17:50 → ICU 17:59
PROVIDERS: ADMIT Internal Medicine; ATTEND Internal Medicine

== ENCOUNTER 2020-06-04 10:50 | Observation (INO) ==
[2020-06-04] MEDS ORDERED: 0.9 % SODIUM CHLORIDE 1,000 ML IV ONE ×2 (10:54→13:13)
--- NOTE | 2020-06-04 11:36 | Emergency Department Note ---
HPI General Chief complaint: Recheck/Abnormal Lab/Rx Stated complaint: Dehydration/Calcium/Mag Lvls High Time Seen by Provider: 06/04/20 10:54 Source: patient Mode of arrival: wheelchair Limitations: no limitations History of Present Illness HPI Narrative: Narrative: 79-year-old male comes in with his daughter for f ailure to thrive and hypotension. Dr. Quinones, nephrology, called me earlier and sent this patient over because she was concerned about his mildly elevated calcium and hypotension. She is concerned that he is getting too much diuretic and is dehydrated. She advised me to rehydrate him and get some basic laboratory. Currently he is afebrile but his daughter notes he is not eating and drinking well. He does seem to be interacting some but is not saying much. Apparently he has not been doing well since his about 6 months ago. He does have a chronic smoker's cough with frequently interrupts his sleep He stopped drinking alcohol 2 weeks ago. Related Data Home Medications Medication Instructions Recorded Confirmed dorzolamide-timolol (PF) 2 %-0.5 % 1 drp OPHTHALMIC BID 05/20/15 06/04/20 eye drops in a dropperette latanoprost 0.005 % eye drops 1 drp OPHTHALMIC QDAY 05/20/15 06/04/20 apixaban 2.5 mg tablet 2.5 mg PO BID #180 tab 12/18/18 06/04/20 budesonide 3 mg 3 mg PO .QOD each 07/23/19 06/04/20 capsule,delayed,extended release ascorbic acid (vitamin C) 500 mg 1 dose PO DAILY 11/25/19 06/04/20 capsule vitamin E (dl, acetate) 400 unit 400 unit PO QDAY 11/25/19 06/04/20 capsule multivitamin 1 tab PO QAM 03/05/20 06/04/20 iron bis glycinate allan 28 mg cap PO 06/04/20 06/04/20 iron-vit C 60 mg-FA 400 mcg-B12 8mcg cap lactobacillus combination no.9 4 4,000 mmu cells PO QDAY 06/04/20 06/04/20 billion cell capsule Previous Rx's Medication Instructions Recorded sodium bicarbonate 325 mg tablet 650 mg PO BID #180 tab 05/24/20 Allergies Allergy/AdvReac Type Severity Reaction Status Date / Time No Known Drug Allergies Allergy Verified 06/04/20 09:57 Review of Systems ROS ROS Narrative: Narrative: All systems ED: reviewed and negative except as stated. [facility] Narrative Patient History Narrative: Narrative: Medical/Surgical/Family History All Active Problems (Updated 06/04/20 @ 14:31 by Heriberto Marie MD) Acute kidney injury (Acute) Acute dehydration (Acute) Hypermagnesemia (Acute) Hypercalcemia (Acute) Skin tear (Acute) Sternal contusion (Acute) Lower gastrointestinal hemorrhage (Acute) Fall (Acute) Right clavicle fracture (Acute) Head injury (Acute) Skin tear (Acute) Bradycardia (Acute) Acute hypotension (Acute) Solitary left kidney (Chronic) Chronic kidney disease (CKD) stage G4/A2, severely decreased glomerular filtration rate (GFR) between 15-29 mL/min/1.73 square meter and albuminuria creatinine ratio between 30-299 mg/g (Chronic) Sinusitis (Acute) Open arm wound (Acute) Cellulitis, face (Acute) Hyperparathyroidism due to renal insufficiency (Chronic) Hypertensive renal disease (Chronic) Hx of tonsillectomy (Chronic) History of prostate surgery (Chronic) Hx of prostate biopsy (Chronic) History of nephrectomy (Chronic) Hx of lithotripsy (Chronic) Hx of colonoscopy (Chronic) Hx of appendectomy (Chronic) Hx of adenoidectomy (Chronic) Vitamin D deficiency (Chronic) Tobacco use (Chronic) Renal sclerosis (Chronic) Renal insufficiency (Chronic) Lymphocytic colitis (Chronic) Long-term (current) use of anticoagulants (Chronic) Kidney stones (Chronic) Hypertensive heart disease, benign, with chronic kidney disease stage 1-4 (Chronic) Hypertension, essential (Chronic) Secondary hyperparathyroidism of renal origin (Chronic) Hyperlipidemia (Chronic) Glaucoma (Chronic) Fatigue (Chronic) Chronic kidney disease, stage IV (severe) (Chronic) Atrial fibrillation (Chronic) Anemia in CKD (chronic kidney disease) (Chronic) Abdominal aortic aneurysm (Chronic) Medical History (Updated 06/04/20 @ 14:31 by Heriberto Marie MD) Abdominal aortic aneurysm (Chronic) Acidosis (Resolved) Acute rhinosinusitis (Resolved) Anemia in CKD (chronic kidney disease) (Chronic) Hb above threshold for SOFIA Will monitor Atrial fibrillation (Chronic) Chronic kidney disease, stage IV (severe) (Chronic) Colonic polyp (Resolved) Deep vein thrombosis (Resolved) Fatigue (Chronic) 07/25/12 Glaucoma (Chronic) Hyperlipidemia (Chronic) 08/21/2012 Hyperparathyroidism due to renal insufficiency (Chronic) Hypertension, essential (Chronic) Hypertensive heart disease, benign, with chronic kidney disease stage 1-4 (Chronic) Hypertensive renal disease (Chronic) Internal hemorrhoids (Resolved) Kidney stones (Chronic) Long-term (current) use of anticoagulants (Chronic) Lymphocytic colitis (Chronic) advised to try reducing budesonide to every other day as suggested by GI Metabolic acidosis (Suspected) Obstructive uropathy (Resolved) Prostate cancer (Resolved) Rectal bleeding (Resolved) Renal insufficiency (Chronic) 08/07/12 Renal sclerosis (Chronic) Secondary hyperparathyroidism of renal origin (Chronic) Tobacco use (Chronic) Venous thrombosis and embolism (Resolved) Vitamin D deficiency (Chronic) 08/21/12 Surgical History History of nephrectomy (Chronic) Left History of prostate surgery (Chronic) 1999 Hx of adenoidectomy (Chronic) Hx of appendectomy (Chronic) Hx of colonoscopy (Chronic) 08/27/13-Angioectasia, colonic polyps, diverticulitis, internal hemorrhoids. Hyperplastic polyp. FU colonoscopy recommended in 2017. Hx of lithotripsy (Chronic) Hx of prostate biopsy (Chronic) Hx of tonsillectomy (Chronic) Social History Smoking Status: Current every day smoker Alcohol Intake Frequency: 2+ drinks per day Substance Use: does not use Exam Narrative Narrative: Narrative: Thin even cachectic male resting comfortably. He is not saying much but he is able to interact and answer questions but gross hearing loss means I have to speak loudly into his ear. Normocephalic atraumatic. Conjunctive are clear sclerae nonicteric. No nasal discharge he does have some mild congestion. Oropharynx is pink and dry. His relatively poor dentition with multiple missing teeth. Neck is supple without lymphadenopathy or thyromegaly. Heart is regular rhythm but bradycardic. Lungs are basically clear to auscultation but he does have a deep productive cough when he takes significant breaths. The cough is not tight and he is normoxic. He does seem to be quite used to the cough and is not distressing to him. Abdomen is soft flat nondistended nontender. No pedal edema General Limitations: no limitations Course Vital Signs Vital signs: Vital Signs Temperature 97.9 F 06/04/20 10:59 Pulse Rate 59 L 06/04/20 10:59 Respiratory Rate 18 06/04/20 10:59 Blood Pressure 75/49 06/04/20 10:59 Pulse Oximetry (%) 100 06/04/20 10:59 Temperature 97.9 F 06/04/20 10:59 Pulse Rate 36 L 06/04/20 12:31 Respiratory Rate 19 06/04/20 14:16 Blood Pressure 120/93 06/04/20 14:16 Pulse Oximetry (%) 96 06/04/20 12:31 MDM MDM Narrative Medical decision making narrative: Narrative: Patient is hypotensive bradycardic with a chronic productive cough. History of smoking elevate risk factors for other disease processes. Prolonged grieving likely complicates. Differential diagnosis includes neoplasm versus heart failure versus severe dehydration versus pneumonia. Ordered chest x-ray laboratory. Start IV fluids. Orthostatic blood pressure sitting versus laying looked okay but he is unable to stand so this was not done Laboratories consistent with dehydration but concern for possible upper GI bleed given hypotension elevated BUN and decreasing hemoglobin. We will do a rectal exam Patient refused rectal exam and states that he is not bleeding from his bottom and that he has had this checked multiple times. I talked with the patient and his daughter about getting further care for acute kidney injury-he only has 1 kidney right now-and dehydration. They agreed to come in for a day or 2 to get rehydrated and hopefully help his kidney. And I discussed the case again with Dr. Quinones, betting agency manager, she agrees that it would be reasonable to bring him in for rehydration. She recommends as well discussing with them the possibility of palliative care. Will discuss with Dr. Estrada, our hospitalist Of note blood pressure seemed low so we readjusted his cuff and rechecked it, it was [address] Estrada agreed to accept the patient for further care and evaluation in the hospital Lab Data Lab results reviewed: Yes I reviewed the patient's lab results. Result diagrams: 06/04/20 11:38 06/04/20 11:37 Labs: Lab Results 06/04/20 06/04/20 06/04/20 Range/Units 11:37 11:37 11:37 WBC (4.5-11.0) K/mcL RBC (4.50-5.90) M/mcL Hgb (13.5-16.5) g/dL Hct (41.0-55.0) % MCV (80.0-100.0) fL MCH (26.0-34.0) pg MCHC (31.0-36.0) g/dL RDW (11.5-14.5) % Plt Count (140-440) K/mcL MPV (7.4-10.4) fL Neut % (Auto) (38.0-78.0) % Lymph % (Auto) (15.0-49.0) % Ulster % (Auto) (1.0-12.0) % Eos % (Auto) (0.0-7.0) % Baso % (Auto) (0.0-2.0) % Lymph # (Auto) (1.50-4.80) K/mcL Ulster # (Auto) (0.10-0.90) K/mcL Eos # (Auto) (0.00-0.70) K/mcL Baso # (Auto) (0.00-0.20) K/mcL Absolute Neutrophils (1.80-8.00) K/mcL VBG Lactic Acid 1.8 (0.5-2.0) mmol/L Sodium 131 L (133-145) mmol/L Potassium 4.1 (3.3-5.1) mmol/L Chloride 97 (96-108) mmol/L Carbon Dioxide 21 L (22-30) mmol/L Anion Gap 13.0 (8.0-16.0) BUN 50 H (8-23) mg/dL Creatinine 3.2 H (0.7-1.2) mg/dL GFR Calculation 17 Glucose 107 H (70-105) mg/dL Calcium 11.2 H (8.6-10.4) mg/dL Magnesium 2.7 H (1.6-2.5) mg/dL Total Bilirubin 0.4 (0.1-1.0) mg/dL AST 17 (<40) U/L ALT 13 (<40) U/L Alkaline Phosphatase 102 (39-117) U/L Total Protein 6.8 (5.9-8.4) gm/dL Albumin 3.3 (3.2-5.2) gm/dL Globulin 3.5 (2.2-3.7) gm/dL Albumin/Globulin Ratio 0.9 L (1.0-2.3) Prealbumin 16.4 L (20.0-40.0) mg/dL Vitamin B12 1346.0 H (232.0-1245.0) pg/mL 06/04/20 Range/Units 11:38 WBC 5.7 (4.5-11.0) K/mcL RBC 3.11 L (4.50-5.90) M/mcL Hgb 10.7 L (13.5-16.5) g/dL Hct 32.7 L (41.0-55.0) % MCV 105.1 H (80.0-100.0) fL MCH 34.4 H (26.0-34.0) pg MCHC 32.7 (31.0-36.0) g/dL RDW 13.9 (11.5-14.5) % Plt Count 243 (140-440) K/mcL MPV 11.4 H (7.4-10.4) fL Neut % (Auto) 68.6 (38.0-78.0) % Lymph % (Auto) 15.6 (15.0-49.0) % Ulster % (Auto) 11.7 (1.0-12.0) % Eos % (Auto) 3.2 (0.0-7.0) % Baso % (Auto) 0.9 (0.0-2.0) % Lymph # (Auto) 0.89 L (1.50-4.80) K/mcL Ulster # (Auto) 0.67 (0.10-0.90) K/mcL Eos # (Auto) 0.18 (0.00-0.70) K/mcL Baso # (Auto) 0.05 (0.00-0.20) K/mcL Absolute Neutrophils 3.92 (1.80-8.00) K/mcL VBG Lactic Acid (0.5-2.0) mmol/L Sodium (133-145) mmol/L Potassium (3.3-5.1) mmol/L Chloride (96-108) mmol/L Carbon Dioxide (22-30) mmol/L Anion Gap (8.0-16.0) BUN (8-23) mg/dL Creatinine (0.7-1.2) mg/dL GFR Calculation Glucose (70-105) mg/dL Calcium (8.6-10.4) mg/dL Magnesium (1.6-2.5) mg/dL Total Bilirubin (0.1-1.0) mg/dL AST (<40) U/L ALT (<40) U/L Alkaline Phosphatase (39-117) U/L Total Protein (5.9-8.4) gm/dL Albumin (3.2-5.2) gm/dL Globulin (2.2-3.7) gm/dL Albumin/Globulin Ratio (1.0-2.3) Prealbumin (20.0-40.0) mg/dL Vitamin B12 (232.0-1245.0) pg/mL Radiology Data Radiology results reviewed: Yes I reviewed the patient's radiology results. Radiology results narrative: Chest x-ray shows no acute process. He does have a chronic AC joint separation and other chronic findings Discharge Plan Patient/Caregiver Discharge Instructions Pt seen by [employer]KER/PA only: No Clinical Impression: Hypercalcemia, Solitary left kidney, Acute kidney injury, Acute dehydration, Hypermagnesemia Patient Disposition: Xfer As Inpt ([facility]) Condition: Serious Follow up with: Luiz Centeno PA-C [Primary Care Provider] - Salome Quinones MD [Physician] - Prescriptions: No Action sodium bicarbonate 325 mg tablet 650 mg PO BID Qty: 180 RF: 2 latanoprost 0.005 % drops 1 drp OPHTHALMIC QDAY RF: 0 dorzolamide-timolol (PF) 2-0.5 % dropperette 1 drp OPHTHALMIC BID RF: 0 budesonide 3 mg capsule,delayed,extend.release 3 mg PO .QOD RF: 0 apixaban 2.5 mg tablet 2.5 mg PO BID Qty: 180 RF: 0 ascorbic acid (vitamin C) 500 mg capsule 500 mg capsule 1 dose PO DAILY RF: 0 vitamin E (dl, acetate) 400 unit capsule 400 unit PO QDAY RF: 0 multivitamin Tablet 1 tab PO QAM RF: 0 iron bis glycinat-vit C-FA-B12 28 mg iron-60mg -400 mcg-8 mcg capsule PO RF: 0 Adult 50 Plus Probiotic 4 billion cell capsule 4,000 mmu cells PO QDAY RF: 0
[2020-06-04 12:34] LABS: Basophils # (Auto) 0.05 K/mcL (0.00-0.20); Basophils % (Auto) 0.9 % (0.0-2.0); Eosinophils # (Auto) 0.18 K/mcL (0.00-0.70); Eosinophils % (Auto) 3.2 % (0.0-7.0); Hematocrit 32.7 % (41.0-55.0); Hemoglobin 10.7 g/dL (13.5-16.5); Lymphocytes # (Auto) 0.89 K/mcL (1.50-4.80); Lymphocytes % (Auto) 15.6 % (15.0-49.0); Mean Cell Volume 105.1 fL (80.0-100.0); Mean Corpuscular HGB Conc 32.7 g/dL (31.0-36.0); Mean Platelet Volume 11.4 fL (7.4-10.4); Monocytes # (Auto) 0.67 K/mcL (0.10-0.90); Monocytes % (Auto) 11.7 % (1.0-12.0); Neutrophils % (Auto) 68.6 % (38.0-78.0); Platelet Count 243 K/mcL (140-440); RBC 3.11 M/mcL (4.50-5.90); Red Cell Distribution Width 13.9 % (11.5-14.5); WBC 5.7 K/mcL (4.5-11.0)
--- NOTE | 2020-06-04 12:46 | XRay Report ---
CLINICAL INFORMATION: hypotension COMPARISON: 02/21/2020 FINDINGS: Heart size, mediastinum and pulmonary vessels are normal. Chronic bronchitis changes appreciated. No infiltrates or effusions. There is a grade 3 dislocation of the right lateral mid clavicular joint with a chronic nonunified comminuted fracture of the distal clavicle IMPRESSION: Chronic bronchitis. No acute disease. Grade 3 right AC dislocation with comminuted chronic fracture distal clavicle Interpreted and Authenticated by: Richard Wong 06/04/20
[2020-06-04 12:52] LABS: ALT/SGPT 13 U/L (<40); AST/SGOT 17 U/L (<40); Albumin 3.3 gm/dL (3.2-5.2); Albumin/Globulin Ratio 0.9 (1.0-2.3); Alkaline Phosphatase 102 U/L (39-117); Bilirubin,Total 0.4 mg/dL (0.1-1.0); Blood Urea Nitrogen 50 mg/dL (8-23); Calcium 11.2 mg/dL (8.6-10.4); Carbon Dioxide 21 mmol/L (22-30); Chloride 97 mmol/L (96-108); Globulin 3.5 gm/dL (2.2-3.7); Glomerular Filtration Rate 17; Glucose 107 mg/dL (70-105)
[2020-06-04 13:46] LABS: Prealbumin 16.4 mg/dL (20.0-40.0)
--- NOTE | 2020-06-04 14:37 | Internal Med History&Physical ---
HPI History of Present Illness Patient information: Note initiated : 06/04/20 at 2:37 pm Service Date, if different from initiated Date: [] Patient: Valerio Ohara 79 y/o M admitted on for Dehydration, Calcium/Mag Levels High. Chief Complaint: Weakness History of present illness: Mr. Ohara is a 79 year old M extremely frail gentleman with history of CKD stage IV/diastolic CHF/glaucoma/A. fib/DVT on anticoagulation who was directed to the ER by nephrology service due to increasing weakness, hypotension, elevated creatinine and suspected dehydration secondary to overdiuresis. Initial work-up in the ER was consistent with severe dehydration with systolics in 90s. Creatinine 3.2/BUN 50. Patient was started on crystalloids. Hospital service was consulted for admission in light of above Patient lives with his kids and grandkids. He denies sick contact. He continues to smoke and endorses to yellow productive sputum but denies chest pain or shortness of breath. Endorses loss of appetite and has experienced weight loss with a current BMI of 16.5. He also consumes significant amount of alcohol after he lost his spouse recently. Initial blood alcohol level was 0.185 Otherwise patient denies fever, headache, dysuria, bloody stool. In the recent months he has had multiple falls. He was recently admitted at [facility] in February with symptomatic bradycardia and hypotension. He continues to follow-up with nephrology clinic at [facility] Review of systems 10 point review system was performed and is negative except for ones discussed above PFSH PFSH All Active Problems (Updated 06/04/20 @ 14:31 by Heriberto Marie MD) Acute kidney injury (Acute) Acute dehydration (Acute) Hypermagnesemia (Acute) Hypercalcemia (Acute) Skin tear (Acute) Sternal contusion (Acute) Lower gastrointestinal hemorrhage (Acute) Fall (Acute) Right clavicle fracture (Acute) Head injury (Acute) Skin tear (Acute) Bradycardia (Acute) Acute hypotension (Acute) Solitary left kidney (Chronic) Chronic kidney disease (CKD) stage G4/A2, severely decreased glomerular filtration rate (GFR) between 15-29 mL/min/1.73 square meter and albuminuria creatinine ratio between 30-299 mg/g (Chronic) Sinusitis (Acute) Open arm wound (Acute) Cellulitis, face (Acute) Hyperparathyroidism due to renal insufficiency (Chronic) Hypertensive renal disease (Chronic) Hx of tonsillectomy (Chronic) History of prostate surgery (Chronic) Hx of prostate biopsy (Chronic) History of nephrectomy (Chronic) Hx of lithotripsy (Chronic) Hx of colonoscopy (Chronic) Hx of appendectomy (Chronic) Hx of adenoidectomy (Chronic) Vitamin D deficiency (Chronic) Tobacco use (Chronic) Renal sclerosis (Chronic) Renal insufficiency (Chronic) Lymphocytic colitis (Chronic) Long-term (current) use of anticoagulants (Chronic) Kidney stones (Chronic) Hypertensive heart disease, benign, with chronic kidney disease stage 1-4 (Chronic) Hypertension, essential (Chronic) Secondary hyperparathyroidism of renal origin (Chronic) Hyperlipidemia (Chronic) Glaucoma (Chronic) Fatigue (Chronic) Chronic kidney disease, stage IV (severe) (Chronic) Atrial fibrillation (Chronic) Anemia in CKD (chronic kidney disease) (Chronic) Abdominal aortic aneurysm (Chronic) Medical History (Updated 06/04/20 @ 14:31 by Heriberto Marie MD) Abdominal aortic aneurysm (Chronic) Acidosis (Resolved) Acute rhinosinusitis (Resolved) Anemia in CKD (chronic kidney disease) (Chronic) Hb above threshold for SOFIA Will monitor Atrial fibrillation (Chronic) Chronic kidney disease, stage IV (severe) (Chronic) Colonic polyp (Resolved) Deep vein thrombosis (Resolved) Fatigue (Chronic) 07/25/12 Glaucoma (Chronic) Hyperlipidemia (Chronic) 08/21/2012 Hyperparathyroidism due to renal insufficiency (Chronic) Hypertension, essential (Chronic) Hypertensive heart disease, benign, with chronic kidney disease stage 1-4 (Chronic) Hypertensive renal disease (Chronic) Internal hemorrhoids (Resolved) Kidney stones (Chronic) Long-term (current) use of anticoagulants (Chronic) Lymphocytic colitis (Chronic) advised to try reducing budesonide to every other day as suggested by GI Metabolic acidosis (Suspected) Obstructive uropathy (Resolved) Prostate cancer (Resolved) Rectal bleeding (Resolved) Renal insufficiency (Chronic) 08/07/12 Renal sclerosis (Chronic) Secondary hyperparathyroidism of renal origin (Chronic) Tobacco use (Chronic) Venous thrombosis and embolism (Resolved) Vitamin D deficiency (Chronic) 08/21/12 Surgical History History of nephrectomy (Chronic) Left History of prostate surgery (Chronic) 1999 Hx of adenoidectomy (Chronic) Hx of appendectomy (Chronic) Hx of colonoscopy (Chronic) 08/27/13-Angioectasia, colonic polyps, diverticulitis, internal hemorrhoids. Hyperplastic polyp. FU colonoscopy recommended in 2017. 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 eating out: rarely or never physical activity: walking frequency: 3-4 times per week duration: 15-30 minutes/day smoking status: Current every day smoker tobacco type: cigarettes per day: 2 alcohol intake frequency: 2+ drinks per day substance use type: does not use gene/muslim: Shinto additional history: 3 light beers a night MEDS/ALLERGIES Home Medications and Allergies Home Medications Medication Instructions Recorded Confirmed Type dorzolamide-timolol (PF) 2 %-0.5 % 1 drp OPHTHALMIC BID 05/20/15 06/04/20 History eye drops in a dropperette latanoprost 0.005 % eye drops 1 drp OPHTHALMIC QDAY 05/20/15 06/04/20 History apixaban 2.5 mg tablet 2.5 mg PO BID #180 tab 12/18/18 06/04/20 History budesonide 3 mg 3 mg PO .QOD each 07/23/19 06/04/20 History capsule,delayed,extended release ascorbic acid (vitamin C) 500 mg 1 dose PO DAILY 11/25/19 06/04/20 History capsule vitamin E (dl, acetate) 400 unit 400 unit PO QDAY 11/25/19 06/04/20 History capsule multivitamin 1 tab PO QAM 03/05/20 06/04/20 History sodium bicarbonate 325 mg tablet 650 mg PO BID #180 tab 05/24/20 06/04/20 Rx iron bis glycinate allan 28 mg cap PO 06/04/20 06/04/20 History iron-vit C 60 mg-FA 400 mcg-B12 8mcg cap lactobacillus combination no.9 4 4,000 mmu cells PO QDAY 06/04/20 06/04/20 History billion cell capsule Allergies Allergy/AdvReac Type Severity Reaction Status Date / Time No Known Drug Allergies Allergy Verified 06/04/20 09:57 EXAM Constitutional Vitals: Temp Pulse Resp BP Pulse Ox 97.9 F 36 L 20 134/65 96 06/04/20 10:59 06/04/20 12:31 06/04/20 14:31 06/04/20 14:31 06/04/20 12:31 Anxious Head normocephalic, temporal wasting Oral cavity moist No ear nose discharge Eye movement symmetrical Neck supple no lymphadenopathy S1-S2 irregular Nonlabored breathing Nondistended nontender abdomen Lower extremity no cyanosis clubbing or joint swelling, significant muscle wasting noted Skin no suspicious lesion Psych no hallucination delusion Neuro normal higher function DATA Data Completed and Pending Labs: Labs from last 24 hours 06/04/20 06/04/20 06/04/20 11:38 11:37 11:37 WBC 5.7 RBC 3.11 L Hgb 10.7 L Hct 32.7 L MCV 105.1 H MCH 34.4 H MCHC 32.7 RDW 13.9 Plt Count 243 MPV 11.4 H Neut % (Auto) 68.6 Lymph % (Auto) 15.6 [place] % (Auto) 11.7 Eos % (Auto) 3.2 Baso % (Auto) 0.9 Lymph # (Auto) 0.89 L [place] # (Auto) 0.67 Eos # (Auto) 0.18 Baso # (Auto) 0.05 Absolute Neutrophils 3.92 VBG Lactic Acid 1.8 Sodium Potassium Chloride Carbon Dioxide Anion Gap BUN Creatinine GFR Calculation Glucose Calcium Magnesium Total Bilirubin AST ALT Alkaline Phosphatase Total Protein Albumin Globulin Albumin/Globulin Ratio Prealbumin 16.4 L Vitamin B12 1346.0 H 06/04/20 11:37 WBC RBC Hgb Hct MCV MCH MCHC RDW Plt Count MPV Neut % (Auto) Lymph % (Auto) [place] % (Auto) Eos % (Auto) Baso % (Auto) Lymph # (Auto) [place] # (Auto) Eos # (Auto) Baso # (Auto) Absolute Neutrophils VBG Lactic Acid Sodium 131 L Potassium 4.1 Chloride 97 Carbon Dioxide 21 L Anion Gap 13.0 BUN 50 H Creatinine 3.2 H GFR Calculation 17 Glucose 107 H Calcium 11.2 H Magnesium 2.7 H Total Bilirubin 0.4 AST 17 ALT 13 Alkaline Phosphatase 102 Total Protein 6.8 Albumin 3.3 Globulin 3.5 Albumin/Globulin Ratio 0.9 L Prealbumin Vitamin B12 A/P Narrative A/P Narrative: * Hypotension secondary to volume depletion-continue crystalloids. Hold diuretics. * Acute on chronic kidney injury(solitary kidney)-secondary to volume depletion. Continue monitor renal function, avoid nephrotoxins. Nephrology consult * Frequent falls weakness and deconditioning PT OT/nutrition support- * Chronic atrial fibrillation rate controlled, anticoagulation on apixaban * History of cardiomyopathy/diastolic heart failure-currently compensated * Alcohol dependence-counseled for alcohol cessation. Monitor for alcohol withdrawal. * History of glaucoma continue home medications * Full code Plan * Crystalloids * Nephrology consult * PT OT nutrition support * Pre-existing medical condition management home meds * Discharge planning per case management likely SNF Time Spent With Patient Time: Total time spent is greater than 50% in coordination of care (as documented) at patient's floor/unit and/or counseling patient:
[2020-06-04] MEDS ORDERED: MAGNESIUM SULFATE 2 GM/50 ML BAG IV PRN (15:34)
[2020-06-04] MEDS ORDERED: BISACODYL 10 MG SUPP.RECT PR PRN (15:34)
[2020-06-04] MEDS ORDERED: MELATONIN 3 MG TABLET PO PRN (15:34)
[2020-06-04] MEDS ORDERED: ACETAMINOPHEN 650 MG/65 ML BOTTLE IV PRN (15:34)
[2020-06-04] MEDS ORDERED: POLYETHYLENE GLYCOL 3350 17 GM PACKET PO PRN (15:34)
[2020-06-04] MEDS ORDERED: POTASSIUM CHLORIDE 40 MEQ in DEXTROSE 5% IN WATER 500 ML IV PRN (15:34)
[2020-06-04] MEDS ORDERED: ONDANSETRON 4 MG ODT TABLET SL PRN (15:34)
[2020-06-04] MEDS ORDERED: ONDANSETRON 4 MG/2 ML VIAL IV PRN (15:34)
[2020-06-04] MEDS: 0.9 % SODIUM CHLORIDE 1,000 ML IV SCH ×2 (16:12→18:53)
--- NOTE | 2020-06-04 18:05 | Nephrology Consult Note ---
HPI Data of Consult Patient: known to practice within the last 3 years Consult date: 06/04/20 Requesting physician: Larry Ridley Primary Care Provider: Luiz Centeno PA-C Consult Narrative Patient Information: Note initiated : 06/04/20 at 5:57 pm Patient: Valerio Ohara 79 y/o M admitted on 06/04/20 for Dehydration, Calcium/Mag Levels High. Chief Complaint: Weakness Valerio Ohara is an 79-year-old male with chronic diastolic heart failure, chron ic atrial fibrillation on Coumadin anticoagulation, hypertension, chronic kidney disease stage 4, s/p left nephrectomy, chronic anemia due to kidney disease and iron deficiency, admitted on 06/04/20. He was sent to the ED from nephrology clinic for suspected dehydration. His daughter reported that he is not eating and drinking well. Apparently he has not been doing well since his about 6 months ago. Nephrology consultation was requested for acute kidney injury. Chief complaint: Weakness Reason for consult: Acute kidney injury cc:: CC: Larry Ridley Review of Systems ROS unobtainable: other (Limited due to hearling loss) Constitutional Constitutional: Present weakness Cardiovascular Cardiovascular: Absent chest pain Respiratory Respiratory: Absent dyspnea Gastrointestinal Gastrointestinal: Absent diarrhea and nausea Integumentary Integumentary: Absent rash Neurological Neurological: Present weakness Psychiatric Psychiatric: Absent anxiety PFSH PFSH All Active Problems (Updated 06/04/20 @ 18:01 by Maira Jang MD) Hyponatremia (Acute) Acute on chronic renal failure (Acute) Acute kidney injury (Acute) Acute dehydration (Acute) Hypermagnesemia (Acute) Hypercalcemia (Acute) Skin tear (Acute) Sternal contusion (Acute) Lower gastrointestinal hemorrhage (Acute) Fall (Acute) Right clavicle fracture (Acute) Head injury (Acute) Skin tear (Acute) Bradycardia (Acute) Acute hypotension (Acute) Solitary left kidney (Chronic) Chronic kidney disease (CKD) stage G4/A2, severely decreased glomerular filtration rate (GFR) between 15-29 mL/min/1.73 square meter and albuminuria creatinine ratio between 30-299 mg/g (Chronic) Sinusitis (Acute) Open arm wound (Acute) Cellulitis, face (Acute) Hyperparathyroidism due to renal insufficiency (Chronic) Hypertensive renal disease (Chronic) Hx of tonsillectomy (Chronic) History of prostate surgery (Chronic) Hx of prostate biopsy (Chronic) History of nephrectomy (Chronic) Hx of lithotripsy (Chronic) Hx of colonoscopy (Chronic) Hx of appendectomy (Chronic) Hx of adenoidectomy (Chronic) Vitamin D deficiency (Chronic) Tobacco use (Chronic) Renal sclerosis (Chronic) Renal insufficiency (Chronic) Lymphocytic colitis (Chronic) Long-term (current) use of anticoagulants (Chronic) Kidney stones (Chronic) Hypertensive heart disease, benign, with chronic kidney disease stage 1-4 (Chronic) Hypertension, essential (Chronic) Secondary hyperparathyroidism of renal origin (Chronic) Hyperlipidemia (Chronic) Glaucoma (Chronic) Fatigue (Chronic) Chronic kidney disease, stage IV (severe) (Chronic) Atrial fibrillation (Chronic) Anemia in CKD (chronic kidney disease) (Chronic) Abdominal aortic aneurysm (Chronic) Medical History (Updated 06/04/20 @ 18:01 by Maira Jang MD) Abdominal aortic aneurysm (Chronic) Acidosis (Resolved) Acute rhinosinusitis (Resolved) Anemia in CKD (chronic kidney disease) (Chronic) Hb above threshold for SOFIA Will monitor Atrial fibrillation (Chronic) Chronic kidney disease, stage IV (severe) (Chronic) Colonic polyp (Resolved) Deep vein thrombosis (Resolved) Fatigue (Chronic) 07/25/12 Glaucoma (Chronic) Hyperlipidemia (Chronic) 08/21/2012 Hyperparathyroidism due to renal insufficiency (Chronic) Hypertension, essential (Chronic) Hypertensive heart disease, benign, with chronic kidney disease stage 1-4 ( Chronic) Hypertensive renal disease (Chronic) Internal hemorrhoids (Resolved) Kidney stones (Chronic) Long-term (current) use of anticoagulants (Chronic) Lymphocytic colitis (Chronic) advised to try reducing budesonide to every other day as suggested by GI Metabolic acidosis (Suspected) Obstructive uropathy (Resolved) Prostate cancer (Resolved) Rectal bleeding (Resolved) Renal insufficiency (Chronic) 08/07/12 Renal sclerosis (Chronic) Secondary hyperparathyroidism of renal origin (Chronic) Tobacco use (Chronic) Venous thrombosis and embolism (Resolved) Vitamin D deficiency (Chronic) 08/21/12 Surgical History History of nephrectomy (Chronic) Left History of prostate surgery (Chronic) 1999 Hx of adenoidectomy (Chronic) Hx of appendectomy (Chronic) Hx of colonoscopy (Chronic) 08/27/13-Angioectasia, colonic polyps, diverticulitis, internal hemorrhoids. Hyperplastic polyp. FU colonoscopy recommended in 2017. 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 eating out: rarely or never physical activity: walking frequency: 3-4 times per week duration: 15-30 minutes/day smoking status: Current every day smoker tobacco type: cigarettes per day: 2 alcohol intake frequency: 2+ drinks per day substance use type: does not use gene/nondenominational: Mosque additional history: 3 light beers a night MEDS/ALLERGIES Home Medications and Allergies Home Medications Medication Instructions Recorded Confirmed Type dorzolamide-timolol (PF) 2 %-0.5 % 1 drp OPHTHALMIC BID 05/20/15 06/04/20 History eye drops in a dropperette latanoprost 0.005 % eye drops 1 drp OPHTHALMIC QDAY 05/20/15 06/04/20 History apixaban 2.5 mg tablet 2.5 mg PO BID #180 tab 12/18/18 06/04/20 History budesonide 3 mg 3 mg PO .QOD each 07/23/19 06/04/20 History capsule,delayed,extended release ascorbic acid (vitamin C) 500 mg 1 dose PO DAILY 11/25/19 06/04/20 History capsule vitamin E (dl, acetate) 400 unit 400 unit PO QDAY 11/25/19 06/04/20 History capsule multivitamin 1 tab PO QAM 03/05/20 06/04/20 History sodium bicarbonate 325 mg tablet 650 mg PO BID #180 tab 05/24/20 06/04/20 Rx lactobacillus combination no.9 4 4,000 mmu cells PO QDAY 06/04/20 06/04/20 History billion cell capsule Allergies Allergy/AdvReac Type Severity Reaction Status Date / Time No Known Drug Allergies Allergy Verified 06/04/20 09:57 Physical Examination Vital Signs Vital signs: Temp Pulse Resp BP Pulse Ox 97.5 F 58 L 18 104/75 100 06/04/20 15:34 06/04/20 15:34 06/04/20 15:34 06/04/20 15:34 06/04/20 15:34 General Appearance General appearance: cachectic, chronically ill, fatigue and frail Respiratory Respiratory: clear Cardiovascular Cardiology: no edema and irregular rhythm Integumentary Integumentary: no rash and warm and dry Neurologic Neurologic: no focal deficit Musculoskeletal Musculoskeletal: no deformities, no erythema and no cyanosis Psychiatric Psychiatric: mood/affect appropriate and cooperative Results Lab Results Result Diagrams: 06/04/20 11:38 06/04/20 11:37 Lab results: Most recent lab results Creatinine 3.2 mg/dL (0.7-1.2) H 06/04/20 11:37 GFR Calculation 17 06/04/20 11:37 Calcium 11.2 mg/dL (8.6-10.4) H 06/04/20 11:37 Magnesium 2.7 mg/dL (1.6-2.5) H 06/04/20 11:37 A/P Assessment and plan (1) Acute on chronic renal failure: Assessment and plan: Valerio Ohara is an 79-year-old male with chronic diastolic heart failure, chronic atrial fibrillation on Coumadin anticoagulation, hypertension, chronic kidney disease stage 4, s/p left nephrectomy, chronic anemia due to kidney dise ase and iron deficiency, admitted on 06/04/20. He was sent to the ED from nephrology clinic for suspected dehydration. His daughter reported that he is not eating and drinking well. Apparently he has not been doing well since his about 6 months ago. Nephrology consultation was requested for acute kidney injury. Acute kidney injury on chronic kidney disease stage 4 with metabolic acidosis and hyponatremia, present on arrival. There is no recent history of IV contrast administration or NSAID use. Intravascular volume depletion considered and IV fluid resuscitation given. Previous work up: Urinalysis on 02/20/20: Yellow, Clear, pH 7.0, SG 1.005, protein negative, occult blood negative, leukocyte esterase negative. CT Abdomen and Pelvis without contrast on 07/27/19: Kidneys, ureters, bladder: Single left kidney. Findings consistent with previous right nephrectomy. 2 small nonobstructing calculi in the left upper pole. Single small calculus in the lower pole. Lower pole stone measures approximately 2 mm. The upper pole stones measure 4 mm. No detectable mass. There is no hydronephrosis. No hydroureter. No ureteral stone. No bladder calculus. Renal US on 08/16/16: No evidence of kidney stone or hydronephrosis in the solitary left kidney. Progress: Serum creatinine increased from baseline 2.0-2.5 to 3.2. Baseline serum creatinine: 2.0-2.5 (eGFR 20-30). Urine output: 200 ml reported in the past 24 hours. Metabolic acidosis. Hyponatremia. Hypermagnesemia. No fluid overload. No uremic symptoms. Recommendations/Plan: No urgent acute hemodialysis need. Avoid NSAIDs, nephrotoxic medications and IV contrast. Monitor BMP and urine output. Status: Acute (2) Metabolic acidosis: Status: Suspected Comment: (3) Hyponatremia: Status: Acute Time Spent With Patient Time: Total time spent is greater than 50% in coordination of care (as documented) at patient's floor/unit and/or counseling patient:
[2020-06-04] MEDS: DOCUSATE SODIUM 100 MG CAPSULE PO SCH (20:15)
[2020-06-04] MEDS: SENNOSIDES/DOCUSATE SODIUM 1 TAB TABLET PO SCH (20:16)
[2020-06-04] MEDS: HEPARIN 5,000 UNIT/ML VIAL SQ SCH (20:16)
[2020-06-04] MEDS: 0.9 % SODIUM CHLORIDE 10 ML SYRINGE IV SCH (20:16)
[2020-06-05] MEDS: 0.9 % SODIUM CHLORIDE 10 ML SYRINGE IV SCH ×2 (06:02→13:37)
[2020-06-05 07:35] LABS: ALT/SGPT 11 U/L (<40); AST/SGOT 17 U/L (<40); Albumin 2.7 gm/dL (3.2-5.2); Alkaline Phosphatase 82 U/L (39-117); Bilirubin,Direct < 0.2 mg/dL (<0.3); Bilirubin,Total 0.3 mg/dL (0.1-1.0); Blood Urea Nitrogen 48 mg/dL (8-23); Calcium 10.1 mg/dL (8.6-10.4); Carbon Dioxide 18 mmol/L (22-30); Chloride 107 mmol/L (96-108); Globulin 2.7 gm/dL (2.2-3.7); Glomerular Filtration Rate 19; Glucose 94 mg/dL (70-105); Lactate Dehydrogenase 175 U/L (135-225); Phosphorous 4.4 mg/dL (2.5-4.5); Triglycerides 38 mg/dL (<150); Uric Acid 7.4 mg/dL (2.5-8.0)
--- NOTE | 2020-06-05 07:48 | Nephrology Progress Note ---
SUBJECTIVE Subjective Patient information: Note initiated : 06/05/20 at 7:44 am Patient: Valerio Ohara 79 y/o M admitted on 06/04/20 for Dehydration, Calcium/Mag Levels High. Chief Complaint: Weakness Pertinent ROS: Feels cold No Veliz catheter No edema Constitutional Vitals: Vital Signs Temp Pulse Resp BP Pulse Ox 98.0 F 50 L 16 128/65 97 06/05/20 05:50 06/05/20 05:50 06/05/20 05:50 06/05/20 05:50 06/05/20 05:50 Period Temp Pulse Resp BP Sys/Walker Pulse Ox Last 24 Hr 97.5 F-98.2 F 36-68 16-25 75-160/49-121 96-100 Intake and Output 06/04/20 06/05/20 06/05/20 21:59 05:59 13:59 Intake Total 1150 0 Output Total 350 275 150 Balance 800 -275 -150 Weight 124 lb 6.4 oz Intake & Output: Intake & Output 06/04/20 06/05/20 06/05/20 21:59 05:59 13:59 Intake Total 1150 0 Output Total 350 275 150 Balance 800 -275 -150 Weight 124 lb 6.4 oz Intake: IV 1000 Sodium Chloride 0.9% 1,000 ml @ 1000 Wide Open IV BOLUS ONE Rx#: [id number] Oral 150 0 Output: Void Amount 350 275 150 Other: Meal Dinner Percent of Meal Consumed Refused Feeding Ability Independent Urine Appearance Clear Clear Clear Urine Color Bright Yellow Bright Yellow Bright Yellow Urine Odor Normal Normal # Voids 1 General appearance: cooperative and no acute distress Head Head exam: Present normal inspection Eye Eye exam: Present normal appearance ENT ENT exam: Present mucous membranes moist Respiratory Respiratory exam: Absent respiratory distress Cardiovascular Cardiovascular exam: Present normal rate and rhythm GI/Abdominal GI/Abdominal exam: Present soft; Absent tenderness Extremities Exam Extremities exam: Absent joint swelling and pedal edema Neurological Exam Neurological exam: Present alert and oriented X3 Psychiatric Psychiatric exam: Present normal affect and normal mood Skin Skin exam: Present warm; Absent rash A/P Assessment and plan (1) Acute on chronic renal failure: Assessment and plan: Valerio Ohara is an 79-year-old male with chronic diastolic heart failure, chr onic atrial fibrillation on Coumadin anticoagulation, hypertension, chronic kidney disease stage 4, s/p left nephrectomy, chronic anemia due to kidney disease and iron deficiency, admitted on 06/04/20. He was sent to the ED from nephrology clinic for suspected dehydration. His daughter reported that he is not eating and drinking well. Apparently he has not been doing well since his about 6 months ago. Nephrology consultation was requested for acute kidney injury. Acute kidney injury on chronic kidney disease stage 4 with metabolic acidosis and hyponatremia, present on arrival. There is no recent history of IV contrast administration or NSAID use. Intravascular volume depletion considered and IV fluid resuscitation given. Previous work up: Urinalysis on 02/20/20: Yellow, Clear, pH 7.0, SG 1.005, protein negative, occult blood negative, leukocyte esterase negative. CT Abdomen and Pelvis without contrast on 07/27/19: Kidneys, ureters, bladder: Single left kidney. Findings consistent with previous right nephrectomy. 2 small nonobstructing calculi in the left upper pole. Single small calculus in the lower pole. Lower pole stone measures approximately 2 mm. The upper pole stones measure 4 mm. No detectable mass. There is no hydronephrosis. No hydroureter. No ureteral stone. No bladder calculus. Renal US on 08/16/16: No evidence of kidney stone or hydronephrosis in the solitary left kidney. Progress: Serum creatinine decreased from 3.2 to 3.0 in the past 18 hours. Baseline serum creatinine: 2.0-2.5 (eGFR 20-30). Urine output: ~800 ml reported in the past 18 hours. Metabolic acidosis. No fluid overload. No uremic symptoms. Recommendations/Plan: Sodium Bicarbonate 650 mg twice daily resumed for metabolic acidosis. IVF may be discontinued. Hold ACEI/ARB and diuretics. No urgent acute hemodialysis need. Avoid NSAIDs, nephrotoxic medications and IV contrast. Monitor BMP and urine output. Status: Acute (2) Metabolic acidosis: Status: Acute Comment: Time Spent With Patient Time: Total time spent is greater than 50% in coordination of care (as documented) at patient's floor/unit and/or counseling patient:
[2020-06-05 08:51] LABS: Band Neutrophils % 4 % (0-10); Eosinophils % (Manual) 4 % (0-7); Hematocrit 34.4 % (41.0-55.0); Hemoglobin 10.5 g/dL (13.5-16.5); Lymphocytes % 14 % (15-49); Macrocytosis 2+ (None Seen); Mean Cell Volume 111.3 fL (80.0-100.0); Mean Corpuscular HGB Conc 30.5 g/dL (31.0-36.0); Mean Platelet Volume 10.7 fL (7.4-10.4); Monocytes % (Manual) 13 % (1-12); Platelet Count 185 K/mcL (140-440); Platelet Estimate NORMAL (Normal); RBC 3.09 M/mcL (4.50-5.90); RBC Morphology ABNORMAL (Normal); Red Cell Distribution Width 14.1 % (11.5-14.5); Segmented Neutrophils % 65 % (38-78); WBC 5.8 K/mcL (4.5-11.0)
[2020-06-05] MEDS: HEPARIN 5,000 UNIT/ML VIAL SQ SCH (10:03)
[2020-06-05] MEDS: MULTIVIT,THER IRON,CA,FA & MIN 1 TABLET PO SCH (10:13)
[2020-06-05] MEDS: SODIUM BICARBONATE 650 MG TABLET PO SCH ×2 (10:13→21:15)
[2020-06-05] MEDS: APIXABAN 5 MG TABLET PO SCH ×2 (10:13→21:15)
[2020-06-05] MEDS: DOCUSATE SODIUM 100 MG CAPSULE PO SCH ×2 (10:14→21:15)
[2020-06-05] MEDS: ACETAMINOPHEN 325 MG TABLET PO PRN (10:27)
--- NOTE | 2020-06-05 10:36 | Internal Med Progress Note ---
SUBJECTIVE Subjective Patient information: Note initiated : 06/05/20 at 10:33 am Service Date, if different from initiated Date: [] Patient: Valerio Ohara 79 y/o M admitted on 06/04/20 for Dehydration, Calcium/Mag Levels High. Chief Complaint: istory of present illness: Mr. Ohara is a 79 year old M extremely frail gentleman with history of CKD stage IV/diastolic CHF/glaucoma/A. fib/DVT on anti coagulation who was directed to the ER by nephrology service due to increasing weakness, hypotension, elevated creatinine and suspected dehydration secondary to overdiuresis. Initial work-up in the ER was consistent with severe dehydration with systolics in 90s. Creatinine 3.2/BUN 50. Patient was started on crystalloids. Hospital service was consulted for admission in light of above Patient lives with his kids and grandkids. He denies sick contact. He continues to smoke and endorses to yellow productive sputum but denies chest pain or shortness of breath. Endorses loss of appetite and has experienced weight loss with a current BMI of 16.5. He also consumes significant amount of alcohol after he lost his spouse recently. Initial blood alcohol level was 0.185 Otherwise patient denies fever, headache, dysuria, bloody stool. In the recent months he has had multiple falls. He was recently admitted at [facility] in February with symptomatic bradycardia and hypotension. He continues to follow-up with nephrology clinic at [place] 06/05-patient gradually improving. Creatinine down to 3. BUN 48. Nephrology on board. Continue crystalloid/bicarbonate per nephrology. No overnight events. Patient complains of feeling cold but denies shaking chills or fever. No additional concerns per nursing staff Constitutional Vitals: Vital Signs Temp Pulse Resp BP Pulse Ox 98.0 F 50 L 16 128/65 97 06/05/20 05:50 06/05/20 05:50 06/05/20 05:50 06/05/20 05:50 06/05/20 05:50 Period Temp Pulse Resp BP Sys/Walker Pulse Ox Last 24 Hr 97.5 F-98.2 F 36-68 16-25 75-160/49-121 96-100 Intake and Output 06/04/20 06/05/20 06/05/20 21:59 05:59 13:59 Intake Total 1150 0 Output Total 350 275 150 Balance 800 -275 -150 Weight 56.427 kg Alert oriented Frail and thin elderly Nonlabored breathing No anxiety Intake & Output: Intake & Output 06/04/20 06/05/20 06/05/20 21:59 05:59 13:59 Intake Total 1150 0 Output Total 350 275 150 Balance 800 -275 -150 Weight 56.427 kg Intake: IV 1000 Sodium Chloride 0.9% 1,000 ml @ 1000 Wide Open IV [facility] Rx#: [id number] Oral 150 0 Output: Void Amount 350 275 150 Other: Meal Dinner Percent of Meal Consumed Refused Feeding Ability Independent Urine Appearance Clear Clear Clear Urine Color Bright Yellow Bright Yellow Bright Yellow Urine Odor Normal Normal # Voids 1 OBJ DATA Labs CBC & Chem 7: 06/05/20 05:40 06/05/20 05:40 Labs: Abnormal Lab Results 06/05/20 06/05/20 06/04/20 05:40 05:40 11:38 RBC 3.09 L 3.11 L Hgb 10.5 L 10.7 L Hct 34.4 L 32.7 L MCV 111.3 H 105.1 H MCH 34.4 H MCHC 30.5 L MPV 10.7 H 11.4 H Lymph # (Auto) 0.89 L Lymphocytes % 14 L Monocytes % (Manual) 13 H RBC Morphology Abnormal A Macrocytosis 2+ A Sodium Carbon Dioxide 18 L BUN 48 H Creatinine 3.0 H Glucose Calcium Magnesium Total Protein 5.4 L Albumin 2.7 L Albumin/Globulin Ratio Prealbumin Vitamin B12 06/04/20 06/04/20 11:37 11:37 RBC Hgb Hct MCV MCH MCHC MPV Lymph # (Auto) Lymphocytes % Monocytes % (Manual) RBC Morphology Macrocytosis Sodium 131 L Carbon Dioxide 21 L BUN 50 H Creatinine 3.2 H Glucose 107 H Calcium 11.2 H Magnesium 2.7 H Total Protein Albumin Albumin/Globulin Ratio 0.9 L Prealbumin 16.4 L Vitamin B12 1346.0 H Meds: Medications Acetaminophen (Tylenol) 650 mg PO Q4-6HP PRN; Protocol PRN Reason: Per Pain Protocol/Fever > 101 Last Admin: 06/05/20 10:27 Dose: 325 mg Documented by: Apixaban (Eliquis) 2.5 mg PO BID [facility] Last Admin: 06/05/20 10:13 Dose: 2.5 mg Documented by: Bisacodyl (Dulcolax) 10 mg TN Q2-3DAYS PRN PRN Reason: Constipation Docusate Sodium (Colace) 100 mg PO BID [facility] Last Admin: 06/05/20 10:14 Dose: Not Given Documented by: Potassium Chloride 40 meq/ (Dextrose) 520 mls @ 130 mls/hr IV UD PRN PRN Reason: K+ = or < 3.5 Magnesium Sulfate (Magnesium Sulfate) 2 gm in 50 mls @ 50 mls/hr IV UD PRN PRN Reason: MG = or < 1.7 Acetaminophen (Ofirmev) 650 mg in 65 mls @ 130 mls/hr IV Q6HP PRN; Protocol PRN Reason: Per Pain Protocol/Fever > 101 Sodium Chloride (Sodium Chloride 0.9%) 1,000 mls @ 50 mls/hr IV .Q20H [facility] Stop: 06/07/20 03:33 Last Admin: 06/04/20 18:53 Dose: 50 mls/hr Documented by: Iron Carb/Multivit/Wilhoit/Folic Acid (Multivitamin W/Minerals) 1 tab PO DAILY [facility] Last Admin: 06/05/20 10:13 Dose: 1 tab Documented by: Latanoprost (Xalatan Ophth Drops) 1 gtt OU QDAY [facility] Melatonin (Melatonin 3mg Tablet) 3 mg PO HSP PRN PRN Reason: Insomnia Ondansetron HCl (Zofran Odt) 4 mg SL Q4-6HP PRN; Protocol PRN Reason: Nausea And Vomiting Ondansetron HCl (Zofran) 4 mg IV Q4-6HP PRN; Protocol PRN Reason: Nausea And Vomiting Dorzolamide-Timolol ((Pf) Eye Drops) 1 dose OU BID [facility] Polyethylene Glycol (Miralax) 17 gm PO DAILYP PRN PRN Reason: Constipation Senna/Docusate Sodium (Senna Plus Tablet) 1 tab PO HS [facility] Last Admin: 06/04/20 20:16 Dose: Not Given Documented by: Sodium Bicarbonate (Sodium Bicarbonate) 650 mg PO BID [facility] Last Admin: 06/05/20 10:13 Dose: 650 mg Documented by: Sodium Chloride (Saline Flush) 10 ml IV Q8 [facility] Last Admin: 06/05/20 06:02 Dose: Not Given Documented by: A/P Narrative A/P Narrative: * Hypotension secondary to volume depletion- clinical improvement noted with ongoing crystalloids * Acute on chronic kidney injury(solitary kidney)-secondary to volume depletion. Creatinine improving with crystalloids. Nephrology on board. * Frequent falls weakness and deconditioning-continue PT OT/nutrition support * Chronic atrial fibrillation rate controlled, anticoagulation on apixaban * History of cardiomyopathy/diastolic heart failure-currently well compensated * Alcohol dependence-counseled for alcohol cessation. Monitor for alcohol withdrawal. * History of glaucoma continue home medications * Full code Plan * Continue crystalloids * Renal failure management per nephrology * PT OT nutrition support * Pre-existing medical condition management home meds * Discharge planning per case management likely SNF Time Spent With Patient Time: Total time spent is greater than 50% in coordination of care (as documented) at patient's floor/unit and/or counseling patient: QUALITY VTE Deep Vein Thrombosis/Pulmonary Embolism Present on Admission: No
[2020-06-05] MEDS: 0.9 % SODIUM CHLORIDE 1,000 ML IV SCH (15:55)
[2020-06-05] MEDS: DORZOLAMIDE TIMOLOL EYE OU SCH (21:16)
[2020-06-05] MEDS: SENNOSIDES/DOCUSATE SODIUM 1 TAB TABLET PO SCH (21:16)
[2020-06-06] MEDS: 0.9 % SODIUM CHLORIDE 10 ML SYRINGE IV SCH ×4 (02:00→20:33)
[2020-06-06] MEDS: ACETAMINOPHEN 325 MG TABLET PO PRN ×2 (02:01→20:32)
[2020-06-06 07:06] LABS: ALT/SGPT 9 U/L (<40); AST/SGOT 13 U/L (<40); Albumin 2.3 gm/dL (3.2-5.2); Albumin/Globulin Ratio 0.8 (1.0-2.3); Alkaline Phosphatase 82 U/L (39-117); Bilirubin,Direct < 0.2 mg/dL (<0.3); Bilirubin,Total 0.3 mg/dL (0.1-1.0); Blood Urea Nitrogen 47 mg/dL (8-23); Calcium 9.5 mg/dL (8.6-10.4); Carbon Dioxide 16 mmol/L (22-30); Chloride 107 mmol/L (96-108); Globulin 2.9 gm/dL (2.2-3.7); Glomerular Filtration Rate 22; Glucose 87 mg/dL (70-105); Lactate Dehydrogenase 159 U/L (135-225); Triglycerides 37 mg/dL (<150); Uric Acid 7.1 mg/dL (2.5-8.0)
--- NOTE | 2020-06-06 07:21 | Nephrology Progress Note ---
SUBJECTIVE Subjective Patient information: Note initiated : 06/06/20 at 7:18 am Patient: Valerio Ohara 79 y/o M admitted on 06/04/20 for Dehydration, Calcium/Mag Levels High. Chief Complaint: Weakness Pertinent ROS: Feels cold Feels better Weakness No Veliz No edema Constitutional Vitals: Vital Signs Temp Pulse Resp BP Pulse Ox 97.8 F 76 25 H 136/105 99 06/06/20 04:01 06/06/20 02:21 06/06/20 06:04 06/06/20 06:01 06/06/20 06:04 Period Temp Pulse Resp BP Sys/Walker Pulse Ox Last 24 Hr 97.8 F-98.6 F 50-85 16-26 131-171/52-105 95-100 Intake and Output 06/05/20 06/06/20 06/06/20 21:59 05:59 13:59 Intake Total 1387 150 Output Total 200 400 Balance 1187 -250 Weight 121 lb 14.4 oz Intake & Output: Intake & Output 06/05/20 06/06/20 06/06/20 21:59 05:59 13:59 Intake Total 1387 150 Output Total 200 400 Balance 1187 -250 Weight 121 lb 14.4 oz Intake: Nourishment/Supplement quantity 237 (ml) IV 1000 Sodium Chloride 0.9% 1,000 ml @ 1000 50 mls/hr IV .Q20H [facility] Rx#: [id number] Oral 150 150 Output: Void Amount 200 400 Other: Meal Dinner Percent of Meal Consumed 50% Feeding Ability Independent Nourishment/Supplement name Nepro Urine Appearance Clear Clear Urine Color Bright Yellow Bright Yellow Urine Odor Normal Stool Size Small Stool Color Brown Stool Consistency Loose # Voids 1 # of times incontinent of 1 Bowels General appearance: cooperative and no acute distress Head Head exam: Present normal inspection Eye Eye exam: Present normal appearance ENT ENT exam: Present mucous membranes moist Respiratory Respiratory exam: Absent respiratory distress Cardiovascular Cardiovascular exam: Present normal rate and rhythm GI/Abdominal GI/Abdominal exam: Present soft; Absent tenderness Extremities Exam Extremities exam: Absent joint swelling and pedal edema Neurological Exam Neurological exam: Present alert and oriented X3 Psychiatric Psychiatric exam: Present normal affect and normal mood Skin Skin exam: Present warm; Absent rash A/P Assessment and plan (1) Acute on chronic renal failure: Assessment and plan: Valerio Ohara is an 79-year-old male with chronic diastolic heart failure, chroni c atrial fibrillation on Coumadin anticoagulation, hypertension, chronic kidney disease stage 4, s/p left nephrectomy, chronic anemia due to kidney disease and iron deficiency, admitted on 06/04/20. He was sent to the ED from nephrology clinic for suspected dehydration. His daughter reported that he is not eating and drinking well. Apparently he has not been doing well since his about 6 months ago. Nephrology consultation was requested for acute kidney injury. Acute kidney injury on chronic kidney disease stage 4 with metabolic acidosis and hyponatremia, present on arrival. There is no recent history of IV contrast administration or NSAID use. Intravascular volume depletion considered and IV fluid resuscitation given. Previous work up: Urinalysis on 02/20/20: Yellow, Clear, pH 7.0, SG 1.005, protein negative, occult blood negative, leukocyte esterase negative. CT Abdomen and Pelvis without contrast on 07/27/19: Kidneys, ureters, bladder: Single left kidney. Findings consistent with previous right nephrectomy. 2 small nonobstructing calculi in the left upper pole. Single small calculus in the lower pole. Lower pole stone measures approximately 2 mm. The upper pole stones measure 4 mm. No detectable mass. There is no hydronephrosis. No hydroureter. No ureteral stone. No bladder calculus. Renal US on 08/16/16: No evidence of kidney stone or hydronephrosis in the solitary left kidney. Progress: Serum creatinine decreased from 3.0 to 32.6 in the past 24 hours. Baseline serum creatinine: 2.0-2.5 (eGFR 20-30). Urine output: 875 ml reported in the past 24 hours. Metabolic acidosis, worsening. No fluid overload. No uremic symptoms. Recommendations/Plan: Sodium Bicarbonate increased to 1300 mg three times daily resumed for metabolic acidosis. IVF discontinued. Hold ACEI/ARB and diuretics. Avoid NSAIDs, nephrotoxic medications and IV contrast. Monitor BMP and urine output. Status: Acute (2) Metabolic acidosis: Assessment and plan: Sodium Bicarbonate increased to 1300 mg three times daily resumed for metabolic acidosis. Status: Acute Comment: Time Spent With Patient Time: Total time spent is greater than 50% in coordination of care (as documented) at patient's floor/unit and/or counseling patient:
[2020-06-06 09:01] LABS: Band Neutrophils % 3 % (0-10); Eosinophils % (Manual) 1 % (0-7); Hematocrit 28.7 % (41.0-55.0); Hemoglobin 9.2 g/dL (13.5-16.5); Lymphocytes % 9 % (15-49); Macrocytosis 2+ (None Seen); Mean Cell Volume 104.4 fL (80.0-100.0); Mean Corpuscular HGB Conc 32.1 g/dL (31.0-36.0); Monocytes % (Manual) 11 % (1-12); Myelocytes % 1 %; Platelet Count 190 K/mcL (140-440); Platelet Estimate NORMAL (Normal); RBC 2.75 M/mcL (4.50-5.90); RBC Morphology ABNORMAL (Normal); Segmented Neutrophils % 75 % (38-78); WBC 5.2 K/mcL (4.5-11.0)
--- NOTE | 2020-06-06 09:51 | XRay Report ---
CLINICAL INFORMATION: Bronchitis COMPARISON: 06/04/2020 FINDINGS: The heart is mildly enlarged. Mediastinum and pulmonary vessels are unremarkable. Lung volumes are mildly elevated compatible with chronic bronchitis. There is minor right basilar atelectasis, but no definite infiltrate or effusion. IMPRESSION: Mild cardiomegaly and chronic bronchitis and minor right basilar atelectasis Interpreted and Authenticated by: Richard Wong 06/06/20
--- NOTE | 2020-06-06 10:34 | Internal Med Progress Note ---
SUBJECTIVE Subjective Patient information: Note initiated : 06/06/20 at 10:33 am Service Date, if different from initiated Date: [] Patient: Valerio Ohara 79 y/o M admitted on 06/04/20 for Dehydration, Calcium/Mag Levels High. Chief Complaint: History of present illness: Mr. Ohara is a 79 year old M extremely frail gentleman with history of CKD stage IV/diastolic CHF/glaucoma/A. fib/DVT on ant icoagulation who was directed to the ER by nephrology service due to increasing weakness, hypotension, elevated creatinine and suspected dehydration secondary to overdiuresis. Initial work-up in the ER was consistent with severe dehydration with systolics in 90s. Creatinine 3.2/BUN 50. Patient was started on crystalloids. Hospital service was consulted for admission in light of above Patient lives with his kids and grandkids. He denies sick contact. He continues to smoke and endorses to yellow productive sputum but denies chest pain or shortness of breath. Endorses loss of appetite and has experienced weight loss with a current BMI of 16.5. He also consumes significant amount of alcohol after he lost his spouse recently. Initial blood alcohol level was 0.185 Otherwise patient denies fever, headache, dysuria, bloody stool. In the recent months he has had multiple falls. He was recently admitted at [facility] in February with symptomatic bradycardia and hypotension. He continues to follow-up with nephrology clinic at [place] 06/05-patient gradually improving. Creatinine down to 3. BUN 48. Nephrology on board. Continue crystalloid/bicarbonate per nephrology. No overnight events. Patient complains of feeling cold but denies shaking chills or fever. No additional concerns per nursing staff 06/06-patient doing well. Creatinine down to 2.6. Continuing treatment as per nephrology. Anticipate discharge in 24 to 40 hours pending improvement in renal function. Stable hemodynamics. Constitutional Vitals: Vital Signs Temp Pulse Resp BP Pulse Ox 98.8 F 76 20 158/72 98 06/06/20 08:03 06/06/20 02:21 06/06/20 08:03 06/06/20 08:03 06/06/20 08:03 Period Temp Pulse Resp BP Sys/Walker Pulse Ox Last 24 Hr 97.8 F-98.8 F 50-85 16-26 136-171/52-105 95-100 Intake and Output 06/05/20 06/06/20 06/06/20 21:59 05:59 13:59 Intake Total 1387 150 Output Total 200 400 Balance 1187 -250 Weight 55.293 kg alert oriented Nonlabored breathing No anxiety Nondistended abdomen Intake & Output: Intake & Output 06/05/20 06/06/20 06/06/20 21:59 05:59 13:59 Intake Total 1387 150 Output Total 200 400 Balance 1187 -250 Weight 55.293 kg Intake: Nourishment/Supplement quantity 237 (ml) IV 1000 Sodium Chloride 0.9% 1,000 ml @ 1000 50 mls/hr IV .Q20H [facility] Rx#: [id number] Oral 150 150 Output: Void Amount 200 400 Other: Meal Dinner Breakfast Percent of Meal Consumed 50% 0% Feeding Ability Independent Nourishment/Supplement name Nepro Urine Appearance Clear Clear Urine Color Bright Yellow Bright Yellow Urine Odor Normal Stool Size Small Stool Color Brown Stool Consistency Loose # Voids 1 # of times incontinent of 1 Bowels OBJ DATA Labs CBC & Chem 7: 06/06/20 05:25 06/06/20 05:25 Labs: Abnormal Lab Results 06/06/20 06/06/20 06/05/20 05:25 05:25 05:40 RBC 2.75 L Hgb 9.2 L Hct 28.7 L MCV 104.4 H MCH MCHC MPV 11.0 H Lymph # (Auto) Lymphocytes % 9 L Monocytes % (Manual) RBC Morphology Abnormal A Macrocytosis 2+ A Sodium Carbon Dioxide 16 L 18 L BUN 47 H 48 H Creatinine 2.6 H 3.0 H Glucose Calcium Magnesium Total Protein 5.2 L 5.4 L Albumin 2.3 L 2.7 L Albumin/Globulin Ratio 0.8 L Prealbumin Vitamin B12 06/05/20 06/04/20 06/04/20 05:40 11:38 11:37 RBC 3.09 L 3.11 L Hgb 10.5 L 10.7 L Hct 34.4 L 32.7 L MCV 111.3 H 105.1 H MCH 34.4 H MCHC 30.5 L MPV 10.7 H 11.4 H Lymph # (Auto) 0.89 L Lymphocytes % 14 L Monocytes % (Manual) 13 H RBC Morphology Abnormal A Macrocytosis 2+ A Sodium Carbon Dioxide BUN Creatinine Glucose Calcium Magnesium Total Protein Albumin Albumin/Globulin Ratio Prealbumin 16.4 L Vitamin B12 1346.0 H 06/04/20 11:37 RBC Hgb Hct MCV MCH MCHC MPV Lymph # (Auto) Lymphocytes % Monocytes % (Manual) RBC Morphology Macrocytosis Sodium 131 L Carbon Dioxide 21 L BUN 50 H Creatinine 3.2 H Glucose 107 H Calcium 11.2 H Magnesium 2.7 H Total Protein Albumin Albumin/Globulin Ratio 0.9 L Prealbumin Vitamin B12 Meds: Medications Acetaminophen (Tylenol) 650 mg PO Q4-6HP PRN; Protocol PRN Reason: Per Pain Protocol/Fever > 101 Last Admin: 06/06/20 02:01 Dose: 325 mg Documented by: Apixaban (Eliquis) 2.5 mg PO BID [facility] Last Admin: 06/05/20 21:15 Dose: 2.5 mg Documented by: Bisacodyl (Dulcolax) 10 mg DC Q2-3DAYS PRN PRN Reason: Constipation Docusate Sodium (Colace) 100 mg PO BID [facility] Last Admin: 06/05/20 21:15 Dose: Not Given Documented by: Potassium Chloride 40 meq/ (Dextrose) 520 mls @ 130 mls/hr IV UD PRN PRN Reason: K+ = or < 3.5 Magnesium Sulfate (Magnesium Sulfate) 2 gm in 50 mls @ 50 mls/hr IV UD PRN PRN Reason: MG = or < 1.7 Acetaminophen (Ofirmev) 650 mg in 65 mls @ 130 mls/hr IV Q6HP PRN; Protocol PRN Reason: Per Pain Protocol/Fever > 101 Iron Carb/Multivit/Goltry/Folic Acid (Multivitamin W/Minerals) 1 tab PO DAILY [facility] Last Admin: 06/05/20 10:13 Dose: 1 tab Documented by: Latanoprost (Xalatan Ophth Drops) 1 gtt OU QDAY [facility] Melatonin (Melatonin 3mg Tablet) 3 mg PO HSP PRN PRN Reason: Insomnia Ondansetron HCl (Zofran Odt) 4 mg SL Q4-6HP PRN; Protocol PRN Reason: Nausea And Vomiting Ondansetron HCl (Zofran) 4 mg IV Q4-6HP PRN; Protocol PRN Reason: Nausea And Vomiting Dorzolamide-Timolol ((Pf) Eye Drops) 1 dose OU BID [facility] Last Admin: 06/05/20 21:16 Dose: Not Given Documented by: Polyethylene Glycol (Miralax) 17 gm PO DAILYP PRN PRN Reason: Constipation Senna/Docusate Sodium (Senna Plus Tablet) 1 tab PO HS [facility] Last Admin: 06/05/20 21:16 Dose: Not Given Documented by: Sodium Bicarbonate (Sodium Bicarbonate) 1,300 mg PO TID [facility] Sodium Chloride (Saline Flush) 10 ml IV Q8 [facility] Last Admin: 06/06/20 08:27 Dose: Not Given Documented by: A/P Narrative A/P Narrative: * Hypotension secondary to volume depletion-clinically resolved * Acute on chronic kidney injury(solitary kidney)-secondary to volume depletion. Creatinine down to 2.6. Nephrology managing. * Frequent falls weakness and deconditioning-continue PT OT/nutrition support * Chronic atrial fibrillation rate controlled, anticoagulation on apixaban * History of cardiomyopathy/diastolic heart failure-currently well compensated * Alcohol dependence-counseled for alcohol cessation. Monitor for alcohol withdrawal. * History of glaucoma continue home medications * Full code Plan * Continue management per nephrology * PT OT nutrition support * Pre-existing medical condition management home meds * Discharge planning per case management likely SNF in 24 hours Time Spent With Patient Time: Total time spent is greater than 50% in coordination of care (as documented) at patient's floor/unit and/or counseling patient: QUALITY VTE Deep Vein Thrombosis/Pulmonary Embolism Present on Admission: No
[2020-06-06] MEDS: DOCUSATE SODIUM 100 MG CAPSULE PO SCH ×2 (11:17→20:33)
[2020-06-06] MEDS: DORZOLAMIDE TIMOLOL EYE OU SCH ×2 (11:18→20:34)
[2020-06-06] MEDS: APIXABAN 5 MG TABLET PO SCH ×2 (11:27→20:32)
[2020-06-06] MEDS: SODIUM BICARBONATE 650 MG TABLET PO SCH ×3 (11:27→20:32)
[2020-06-06] MEDS: MULTIVIT,THER IRON,CA,FA & MIN 1 TABLET PO SCH (11:28)
[2020-06-06] MEDS: LATANOPROST OPHTH DROPS 2.5ML BOTTLE OU SCH ×2 (11:31→20:35)
[2020-06-06] MEDS: 0.9 % SODIUM CHLORIDE 1,000 ML IV SCH (11:47)
[2020-06-06] MEDS: SENNOSIDES/DOCUSATE SODIUM 1 TAB TABLET PO SCH (20:33)
[2020-06-07 08:20] LABS: Eosinophils % (Manual) 2 % (0-7); Hematocrit 31.4 % (41.0-55.0); Hemoglobin 10.2 g/dL (13.5-16.5); Lymphocytes % 18 % (15-49); Mean Cell Volume 104.3 fL (80.0-100.0); Mean Corpuscular HGB Conc 32.5 g/dL (31.0-36.0); Mean Platelet Volume 11.5 fL (7.4-10.4); Monocytes % (Manual) 10 % (1-12); Platelet Count 194 K/mcL (140-440); Platelet Estimate NORMAL (Normal); RBC 3.01 M/mcL (4.50-5.90); RBC Morphology NORMAL (Normal); Red Cell Distribution Width 14.2 % (11.5-14.5); Segmented Neutrophils % 70 % (38-78); WBC 5.5 K/mcL (4.5-11.0)
--- NOTE | 2020-06-07 08:57 | Discharge Summary ---
Discharge Provider Provider Patient information: Note initiated : 06/07/20 at 8:55 am Service Date, if different from initiated Date: [] Patient: Valerio Ohara 79 y/o M admitted on 06/04/20 for Dehydration, Calcium/Mag Levels High. Chief Complaint: Discharge diagnosis * Hypotension secondary to volume depletion-clinically resolved * Acute on chronic kidney injury(solitary kidney)-secondary to volume depletion. Creatinine at baseline. Managed by nephrology. We will follow-up with nephrology as outpatient. * Frequent falls weakness and deconditioning-managed with aggressive PT OT/nutrition support * Chronic atrial fibrillation rate controlled, anticoagulation on apixaban * History of cardiomyopathy/diastolic heart failure-currently well compensated * Alcohol dependence-counseled for alcohol cessation. Monitor for alcohol withdrawal. * History of glaucoma continue home medications Brief hospital course History of present illness: Mr. Ohara is a 79 year old M extremely frail gentleman with history of CKD stage IV/diastolic CHF/glaucoma/A. fib/DVT on anticoagulation who was directed to the ER by nephrology service due to increasing weakness, hypotension, elevated creatinine and suspected dehydration secondary to overdiuresis. Initial work-up in the ER was consistent with severe dehydration with systolics in 90s. Creatinine 3.2/BUN 50. Patient was started on crystalloids. Hospital service was consulted for admission in light of above Patient lives with his kids and grandkids. He denies sick contact. He continues to smoke and endorses to yellow productive sputum but denies chest pain or shortness of breath. Endorses loss of appetite and has experienced weight loss with a current BMI of 16.5. He also consumes significant amount of alcohol after he lost his spouse recently. Initial blood alcohol level was 0.185 Otherwise patient denies fever, headache, dysuria, bloody stool. In the recent months he has had multiple falls. He was recently admitted at [facility] in February with symptomatic bradycardia and hypotension. He continues to follow-up with nephrology clinic at [place] 06/05-patient gradually improving. Creatinine down to 3. BUN 48. Nephrology on board. Continue crystalloid/bicarbonate per nephrology. No overnight events. Patient complains of feeling cold but denies shaking chills or fever. No additional concerns per nursing staff 06/06-patient doing well. Creatinine down to 2.6. Continuing treatment as per nephrology. Anticipate discharge in 24 to 40 hours pending improvement in renal function. Stable hemodynamics. 06/07-patient discharging home with advised to continue follow-up with nephrology. Continue dietary supplements/adequate hydration. Continue discharge instructions per nephrology Date of admission: 06/04/20 15:16 Discharge date: 06/07/20 Primary care physician: Luiz Centeno PA-C Consults: 06/04/20 Consult to Physician [CONS] Stat Comment: Consulting Provider: Larry Ridley Reason For Exam: Physician to Consult 06/04/20 13:54 Consult to Physician [CONS] Stat Comment: Consulting Provider: Salome Quinones Reason For Exam: Physician to Consult Discharge Meds Discharge Medications Home Medications dorzolamide-timolol (PF) 2 %-0.5 % eye drops in a dropperette 1 drp OPHTHALMIC BID 05/20/15 [History Confirmed 06/04/20 Last Taken Unknown] latanoprost 0.005 % eye drops 1 drp OPHTHALMIC QDAY 05/20/15 [History Confirmed 06/04/20 Last Taken 08/27/17 05:00] apixaban 2.5 mg tablet 2.5 mg PO BID #180 tab 12/18/18 [History Confirmed 06/04/20 Last Taken Unknown] budesonide 3 mg capsule,delayed,extended release 3 mg PO .QOD each 07/23/19 [History Confirmed 06/04/20 Last Taken Unknown] ascorbic acid (vitamin C) 500 mg capsule 1 dose PO DAILY 11/25/19 [History Confirmed 06/04/20 Last Taken Unknown] vitamin E (dl, acetate) 400 unit capsule 400 unit PO QDAY 11/25/19 [History Confirmed 06/04/20 Last Taken Unknown] multivitamin 1 tab PO QAM 03/05/20 [History Confirmed 06/04/20 Last Taken Unknown] sodium bicarbonate 325 mg tablet 650 mg PO BID #180 tab 05/24/20 [Rx Confirmed 06/04/20 Last Taken Unknown] lactobacillus combination no.9 4 billion cell capsule 4,000 mmu cells PO QDAY 06/04/20 [History Confirmed 06/04/20 Last Taken Unknown] COURSE Hospital Course Hospital course: . Discharge diagnosis: . Time Spent with Patient Time attestation: Total time spent providing and/or coordinating discharge services: EXAM Constitutional Vitals: Temp Pulse Resp BP Pulse Ox 97.8 F 51 L 21 149/78 97 06/07/20 08:01 06/06/20 15:31 06/07/20 08:01 06/07/20 08:01 06/07/20 08:01 Discharge Data Data Completed and Pending Labs on day of discharge: Labs from last 24 hours 06/07/20 06/07/20 06/06/20 05:18 05:18 05:25 WBC 5.5 5.2 RBC 3.01 L 2.75 L Hgb 10.2 L 9.2 L Hct 31.4 L 28.7 L MCV 104.3 H 104.4 H MCH 33.9 33.5 MCHC 32.5 32.1 RDW 14.2 14.0 Plt Count 194 190 MPV 11.5 H 11.0 H Seg Neutrophils % 70 75 Band Neutrophils % Pending 3 Lymphocytes % 18 9 L Monocytes % (Manual) 10 11 Eosinophils % (Manual) 2 1 Myelocytes % 1 Platelet Estimate Normal Normal RBC Morphology Normal Abnormal A Macrocytosis 2+ A Sodium Pending Potassium Pending Chloride Pending Carbon Dioxide Pending Anion Gap Pending BUN Pending Creatinine Pending GFR Calculation Pending Glucose Pending Uric Acid Pending Calcium Pending Phosphorus Pending Magnesium Pending Total Bilirubin Pending Direct Bilirubin Pending GGT Pending AST Pending ALT Pending Alkaline Phosphatase Pending Lactate Dehydrogenase Pending Total Protein Pending Albumin Pending Globulin Pending Albumin/Globulin Ratio Pending Triglycerides Pending Discharge Plan Patient/Caregiver Discharge Instructions Activity: increase activity as tolerated Diet: Consistent Carbohydrate Activity Restrictions/Additional Instructions: Follow-up nephrology June 10 Return to ER if lightheadedness dizziness weakness or diarrhea noted Prescriptions: Continued sodium bicarbonate 325 mg tablet 650 mg PO BID Qty: 180 RF: 2 latanoprost 0.005 % drops 1 drp OPHTHALMIC QDAY RF: 0 dorzolamide-timolol (PF) 2-0.5 % dropperette 1 drp OPHTHALMIC BID RF: 0 budesonide 3 mg capsule,delayed,extend.release 3 mg PO .QOD RF: 0 apixaban 2.5 mg tablet 2.5 mg PO BID Qty: 180 RF: 0 ascorbic acid (vitamin C) 500 mg capsule 500 mg capsule 1 dose PO DAILY RF: 0 vitamin E (dl, acetate) 400 unit capsule 400 unit PO QDAY RF: 0 multivitamin Tablet 1 tab PO QAM RF: 0 Adult 50 Plus Probiotic 4 billion cell capsule 4,000 mmu cells PO QDAY RF: 0 Follow Up Plan Follow up with: Luiz Centeno PA-C [Primary Care Provider] - Salome Quinones MD [Physician] - Patient Disposition: Home, Self-Care Prognosis: Serious Rehab Potential: Fair I certify that the patient requires SNF services: No Overall status at discharge: patient is progressing back to baseline Discharge Orders: Discharge Order (Routine); Ordered 06/07/20 Ordered By: Larry [facility] VTE Deep Vein Thrombosis/Pulmonary Embolism Present on Admission: No
[2020-06-07 09:26] LABS: ALT/SGPT 12 U/L (<40); AST/SGOT 18 U/L (<40); Albumin 2.7 gm/dL (3.2-5.2); Albumin/Globulin Ratio 0.9 (1.0-2.3); Alkaline Phosphatase 82 U/L (39-117); Bilirubin,Direct < 0.2 mg/dL (<0.3); Bilirubin,Total 0.3 mg/dL (0.1-1.0); Blood Urea Nitrogen 43 mg/dL (8-23); Calcium 10.3 mg/dL (8.6-10.4); Carbon Dioxide 16 mmol/L (22-30); Chloride 108 mmol/L (96-108); Globulin 2.9 gm/dL (2.2-3.7); Glomerular Filtration Rate 21; Glucose 85 mg/dL (70-105); Lactate Dehydrogenase 204 U/L (135-225); Phosphorous 4.2 mg/dL (2.5-4.5); Triglycerides 45 mg/dL (<150); Uric Acid 7.3 mg/dL (2.5-8.0)
[2020-06-07] MEDS: DOCUSATE SODIUM 100 MG CAPSULE PO SCH (10:34)
[2020-06-07] MEDS: 0.9 % SODIUM CHLORIDE 10 ML SYRINGE IV SCH (10:58)
[2020-06-07] MEDS: DORZOLAMIDE TIMOLOL EYE OU SCH (11:00)
[2020-06-07] MEDS: APIXABAN 5 MG TABLET PO SCH (11:01)
[2020-06-07] MEDS: MULTIVIT,THER IRON,CA,FA & MIN 1 TABLET PO SCH (11:02)
[2020-06-07] MEDS: SODIUM BICARBONATE 650 MG TABLET PO SCH (11:02)
[2020-06-07] MEDS: LATANOPROST OPHTH DROPS 2.5ML BOTTLE OU SCH ×2 (11:04→11:06)
== END 2020-06-07 11:45 | disposition home or self-care (01) ==
LOC: MEDSUR 10:50 → ED 10:50 → MEDSUR 15:31
PROVIDERS: ADMIT Internal Medicine; ATTEND Internal Medicine